=== PATIENT | female | born 1965 | race African-American/Black ===

== ENCOUNTER → 2016-06-29 | Outpatient (CLI) | payer OTHER ==
[~2016-06-29] MED LIST: ALBU18002 INH; ELVI1TAB2 PO; ESCI1TAB10 PO; GABA-113 PO; HYDR-3126 PO; OPTIRAY 320 IV PRN
--- NOTE | 2016-06-29 14:52 | DIAGNOSTIC IMAGING REPORT ---
CT OF THE HEAD WITH AND WITHOUT CONTRAST CT DOSE: 1441.90 mGycm CLINICAL HISTORY: DYSPHAGIA AND APHASIA TECHNIQUE: Axial images of the head were obtained before and after intravenous ministration of 93 cc of Optiray 320 IV. COMPARISON STUDY: None. FINDINGS: No acute intracranial hemorrhage, midline shift or mass effect is present. Ventricular system is normal. The basilar cisterns are patent. There are no extra axial collections. Conner-white differentiation is maintained. There are no findings to suggest acute dural sinus thrombosis or acute territorial infarct. No intracranial mass or pathologic enhancement is identified on the postcontrast images. Visualized portions of the sinuses and mastoid air cells are clear. There are no calvarial abnormalities. IMPRESSION: 1. No acute intracranial findings. 2. No intracranial masses or pathologic enhancement. Electronically signed by: Sahil Lopez M.D. 06/29/2016 2:50 PM Dictated Date/Time: 06/29/2016 2:44 PM
== END | disposition home or self-care (01) ==
LOC: C.CTS 13:59
PROVIDERS: ATTEND Internal Medicine Infectious Disease
DX: R47.01 Aphasia (principal); R47.02 Dysphasia; Z21 Asymptomatic human immunodeficiency virus [HIV] infection status

== ENCOUNTER → 2016-08-11 | Outpatient (CLI) | payer OTHER ==
[~2016-08-11] MED LIST changes: -OPTIRAY 320 IV PRN
--- NOTE | 2016-08-11 10:54 | DIAGNOSTIC IMAGING REPORT ---
RIGHT ANKLE MIN 3 VIEWS ROUTINE CLINICAL HISTORY: Right ankle pain following inversion injury. COMPARISON: None FINDINGS: Alignment of the right ankle is anatomic. There is no acute fracture. Talar dome is intact. There is minimal posterior calcaneal spurring. IMPRESSION: No acute fracture or dislocation of the right ankle. Electronically signed by: Sahil Loepz M.D. 08/11/2016 10:53 AM Dictated Date/Time: 08/11/2016 10:53 AM
--- NOTE | 2016-08-11 10:56 | DIAGNOSTIC IMAGING REPORT ---
L-SPINE MIN 4 VIEWS ROUTINE CLINICAL HISTORY: Lumbar pain. COMPARISON: None FINDINGS: Alignment of the lumbar spine is anatomic. Vertebral body heights are maintained. There is no fracture or suspicious lesion. Disc spaces are preserved. Pelvic calcifications likely reflect phleboliths. There is minimal endplate osteophytosis. IMPRESSION: No significant abnormality of the lumbar spine. Electronically signed by: Sahil Lopez M.D. 08/11/2016 10:55 AM Dictated Date/Time: 08/11/2016 10:54 AM
== END | disposition home or self-care (01) ==
LOC: C.RADBC 10:26
PROVIDERS: ATTEND Family Medicine
DX: M25.571 Pain in right ankle and joints of right foot (principal); M54.5 Low back pain

== ENCOUNTER → 2016-09-15 | Outpatient (CLI) | payer OTHER ==
[2016-09-15 12:05] LABS: BASO % 0.3 %; BASO ABS # 0.02 K/uL (0-0.2); COMPLETE YES; EOS % 1.5 %; HEMATOCRIT 39.3 % (37-47); IG% 0.3 %; LYMPH ABS # 1.84 K/uL (1.2-3.4); MEAN CELL VOLUME 83.3 fL (80-100); MEAN CORPUSCULAR HGB CONC 33.6 g/dl (32-36); MEAN PLATELET VOLUME 9.2 fL (7.4-10.4); MONO % 6.1 %; NEUT % 66.8 %; PLATELET COUNT 418 K/uL (130-400); RED BLOOD COUNT 4.72 M/uL (4.2-5.4); WHITE BLOOD COUNT 7.37 K/uL (4.8-10.8)
[2016-09-15 13:23] LABS: ALT/SGPT 25 U/L (12-78); AST/SGOT 16 U/L (15-37); BLOOD UREA NITROGEN 12 mg/dl (7-18); BUN/CREATININE RATIO 12.6 (10-20); CALCIUM 8.2 mg/dl (8.5-10.1); CARBON DIOXIDE 28 mmol/L (21-32); CHLORIDE 108 mmol/L (98-107); CREATININE 0.95 mg/dl (0.60-1.20); GLUCOSE 104 mg/dl (70-99); POTASSIUM 3.9 mmol/L (3.5-5.1); SODIUM 142 mmol/L (136-145)
[2016-09-15 13:25] LABS: ALB/GLOB RATIO 0.7 (0.9-2); ALKALINE PHOSPHATASE 85 U/L (45-117)
== END | disposition home or self-care (01) ==
LOC: C.LAB1850 11:00
PROVIDERS: ATTEND Internal Medicine Infectious Disease
DX: B20 Human immunodeficiency virus [HIV] disease (principal)

== ENCOUNTER 2016-12-28 18:38 | Emergency (ER) | payer OTHER ==
[~2016-12-28] VITALS: Ht 165.1 cm; Wt 96.6 kg
[2016-12-28 18:47] VITALS: TEMP 37; Ht 165.1 cm; Wt 96.6 kg
[2016-12-28] MEDS ORDERED: SODIUM CHLORIDE 0.9% 1000ML 1,000 ML IV STA (19:28)
[2016-12-28] MEDS ORDERED: ONDANSETRON INJ 2 MG/ML 2 ML VIAL IV STA (19:28)
[2016-12-28] MEDS ORDERED: MoRPHine SULFATE 10 MG/ML CARP/VIAL IV STA (19:28)
--- NOTE | 2016-12-28 19:35 | EMERGENCY ROOM VISIT NOTE ---
History Report prepared by Alicia: Pooja Chang Under the Supervision of: Dr. Roberto Marie M.D. First contact with patient: 19:21 Chief Complaint: OVERDOSE (ACCIDENTAL) Stated Complaint: NICOTINE POISONING - OD Nursing Triage Summary: "I OD'd on Nicotine". Pt reports she quit smoking 3 weeks ago, has been using gum. Pt reports she took 3 yesterday, one today. Today began feeling ill. Heart felt like it was beating fast, nausea, vomiting, abd pain, hot flashes History of Present Illness The patient is a 51 year old female who presents to the Emergency Room with complaints of persistent abdominal pain starting this morning. The pain is in the epigastric region. The patient quit smoking 3 weeks ago and has been using nicotine gum. She took 20 mg yesterday. This morning she started having abdominal pain, nausea, and vomiting. She is concerned for nicotine overdose. She is unable to eat because of her nausea and vomiting. She reports her body feels stiff. She denies any neck stiffness, chest pain, diarrhea, or dysuria. She denies any recent falls or head injury. Her last bowel movement was yesterday. She denies any history of gallbladder problems, pancreatitis, or other abdominal problems. She has not had any abdominal surgeries besides a C section. Source of History: patient Onset: this morning Position: abdomen Quality: other (pain) Timing: other (persistent) Associated Symptoms: + nausea, + vomiting, No chest pain, No diarrhea, No urinary symptoms Note: Pt reports body stiffness. Pt denies neck stiffness. Review of Systems See HPI for pertinent positives & negatives. A total of 10 systems reviewed and were otherwise negative. Past Medical & Surgical Medical Problems: (1) Bipolar 1 disorder (2) HIV positive Family History Diabetes mellitus FHx: cancer Hypertension Social History Smoking Status: Current Every Day Smoker Marital Status: Occupation Status: unemployed Current/Historical Medications Scheduled Uzeaotqrukut-Avwqheisha-Bslufh (Stribild), 1 TAB PO DAILY Escitalopram Oxalate (Lexapro), 20 MG PO DAILY Gabapentin (Neurontin), 300 MG PO TID Hydroxyzine Hcl (Atarax), 50 MG PO BID Scheduled PRN Albuterol Sulfate (Proair Respiclick), 2 PUFFS INH Q4H PRN for SOB/Wheezing Allergies Coded Allergies: Acetaminophen (Verified Adverse Reaction, Unknown, not allowed to have d/ t kidney/liver, 09/20/15) Ibuprofen (Verified Adverse Reaction, Unknown, not allowed to have d/t kidney/liver, 09/20/15) Physical Exam Vital Signs Date Time Temp Pulse Resp B/P (MAP) Pulse Ox O2 Delivery O2 Flow Rate FiO2 12/28/16 21:50 90 110/73 97 Room Air 12/28/16 20:33 95 19 94 12/28/16 20:31 117/83 12/28/16 20:31 117/83 12/28/16 20:28 93 12 96 12/28/16 20:27 95 12/28/16 20:08 126/77 12/28/16 20:08 126/77 12/28/16 18:47 37.0 110 16 116/76 96 Room Air Physical Exam GENERAL: Patient is anxious appearing and in minimal distress. HEENT: No acute trauma, normocephalic atraumatic, mucous membranes moist, no nasal congestion, no scleral icterus. NECK: No stridor, no adenopathy, no meningismus, trachea is midline. LUNGS: No dyspnea. Clear to auscultation and equal bilaterally. No wheeze, no rhonchi. HEART: Regular rate and rhythm. No murmurs, rubs, gallops appreciated. ABDOMEN: Soft, point tenderness over epigastrium, bowel sounds positive, no masses appreciated, no peritonitis. BACK: No midline tenderness, no CVA tenderness EXTREMITIES: Normal motion all extremities, no cyanosis, no edema. NEUROLOGIC: Alert and oriented, no acute motor or sensory deficits, no focal weakness, cranial nerves grossly intact. SKIN: No rash, no jaundice, no diaphoresis. Medical Decision & Procedures ER Provider Diagnostic Interpretation: Radiology results and stated below per my review and radiologist interpretation: CT ABD/PELVIS IV CONTRAST ONLY CLINICAL HISTORY: Epigastric pain and vomiting COMPARISON STUDY: None. TECHNIQUE: Following the IV administration of 116 mL of Optiray-320, CT scan of the abdomen and pelvis was performed from the lung bases to the proximal femurs. Images are reviewed in the axial, sagittal, and coronal planes. IV contrast was administered without complication. CT DOSE: 787.78 mGy.cm FINDINGS: Lower chest: There are mild dependent atelectatic changes. Liver: The contrast-enhanced liver is normal in size, contour, and attenuation. There is no intrahepatic biliary ductal dilatation. The hepatic veins and portal veins are patent. Gallbladder: Unremarkable. Spleen: Normal in size and attenuation. Pancreas: Unremarkable. Adrenal glands: There is a 24 mm right adrenal nodule with a mean Hounsfield attenuation value of 28. This is therefore indeterminate Kidneys: There is symmetric renal cortical enhancement. The kidneys are normal in size without hydronephrosis. Bowel: There are no transition zones indicate bowel obstruction. The appendix appears normal. There is no acute diverticulitis. Peritoneum: There is no intraperitoneal free air or abdominal ascites. Vasculature: The abdominal aorta is normal in course and caliber. Adenopathy: None. Pelvic viscera: The uterus is surgically absent Skeletal structures: No destructive osseous lesions are seen. IMPRESSION: 1. No evidence of bowel obstruction. No evidence of free air 2. Normal appendix. No evidence of acute diverticulitis 3. 24 mm right adrenal nodule Electronically signed by: Segun Knott M.D. 12/28/2016 9:11 PM Dictated Date/Time: 12/28/2016 9:07 PM Laboratory Results 12/28/16 19:57 Red Blood Count 5.26, Mean Corpuscular Volume 82.3, Mean Corpuscular Hemoglobin 27.9, Mean Corpuscular Hemoglobin Concent 33.9, Mean Platelet Volume 9.1, Neutrophils (%) (Auto) 65.8, Lymphocytes (%) (Auto) 22.0, Monocytes (%) (Auto) 8.6, Eosinophils (%) (Auto) 3.2, Basophils (%) (Auto) 0.2, Neutrophils # (Auto) 5.74, Lymphocytes # (Auto) 1.92, Monocytes # (Auto) 0.75, Eosinophils # (Auto) 0.28, Basophils # (Auto) 0.02 12/28/16 19:57 Test 12/28/16 19:50 12/28/16 19:57 Urine Color DK YELLOW Urine Appearance CLEAR (CLEAR) Urine pH 5.0 (4.5-7.5) Urine Specific [place]ro 1.035 (1.000-1.030) Urine Protein NEG (NEG) Urine Glucose (UA) NEG (NEG) Urine Ketones TRACE (NEG) Urine Occult Blood NEG (NEG) Urine Nitrite NEG (NEG) Urine Bilirubin NEG (NEG) Urine Urobilinogen NEG (NEG) Urine Leukocyte Esterase TRACE (NEG) Urine WBC (Auto) 5-10 /hpf (0-5) Urine RBC (Auto) 0-4 /hpf (0-4) Urine Hyaline Casts (Auto) 10-30 /lpf (0-5) Urine Epithelial Cells (Auto) >30 /lpf (0-5) Urine Bacteria (Auto) NEG (NEG) Urine Test NEG (NEG) White Blood Count 8.73 K/uL (4.8-10.8) Red Blood Count 5.26 M/uL (4.2-5.4) Hemoglobin 14.7 g/dL (12.0-16.0) Hematocrit 43.3 % (37-47) Mean Corpuscular Volume 82.3 fL (80-100) Mean Corpuscular Hemoglobin 27.9 pg (25-34) Mean Corpuscular Hemoglobin Concent 33.9 g/dl (32-36) Platelet Count 456 K/uL (130-400) Mean Platelet Volume 9.1 fL (7.4-10.4) Neutrophils (%) (Auto) 65.8 % Lymphocytes (%) (Auto) 22.0 % Monocytes (%) (Auto) 8.6 % Eosinophils (%) (Auto) 3.2 % Basophils (%) (Auto) 0.2 % Neutrophils # (Auto) 5.74 K/uL (1.4-6.5) Lymphocytes # (Auto) 1.92 K/uL (1.2-3.4) Monocytes # (Auto) 0.75 K/uL (0.11-0.59) Eosinophils # (Auto) 0.28 K/uL (0-0.5) Basophils # (Auto) 0.02 K/uL (0-0.2) RDW Standard Deviation 44.0 fL (36.4-46.3) RDW Coefficient of Variation 14.7 % (11.5-14.5) Immature Granulocyte % (Auto) 0.2 % Immature Granulocyte # (Auto) 0.02 K/uL (0.00-0.02) Anion Gap 8.0 mmol/L (3-11) Est Creatinine Clear Calc Drug Dose 78.3 ml/min Estimated GFR () 76.6 Estimated GFR (Non- 66.1 BUN/Creatinine Ratio 15.4 (10-20) Calcium Level 8.9 mg/dl (8.5-10.1) Total Bilirubin 0.3 mg/dl (0.2-1) Direct Bilirubin 0.1 mg/dl (0-0.2) Aspartate Amino Transf (AST/SGOT) 15 U/L (15-37) Alanine Aminotransferase (ALT/SGPT) 23 U/L (12-78) Alkaline Phosphatase 96 U/L (45-117) Troponin I < 0.015 ng/ml (0-0.045) Total Protein 8.8 gm/dl (6.4-8.2) Albumin 3.6 gm/dl (3.4-5.0) Lipase 81 U/L (73-393) Laboratory results as reviewed by me. Medications Administered Medications (Trade) Dose Ordered Sig/Neri Route Start Time Stop Time Status Last Admin Dose Admin Sodium Chloride 1,000 ml @ 999 mls/hr Q1H1M STAT IV 12/28/16 19:28 12/28/16 20:28 DC 12/28/16 20:04 999 MLS/HR Morphine Sulfate (MoRPHine SULFATE INJ) 6 mg NOW STAT IV 12/28/16 19:28 12/28/16 19:29 DC 12/28/16 20:04 6 MG Ondansetron HCl (Zofran Inj) 4 mg NOW STAT IV 12/28/16 19:28 12/28/16 19:29 DC 12/28/16 20:02 4 MG Ondansetron HCl (ZOFRAN ODT 4MG Home Pack) 1 homepack UD ONCE PO 12/28/16 21:30 12/28/16 21:31 DC 12/28/16 22:16 1 HOMEPACK ECG Indication: toxicologic Rate (beats per minute): 94 Rhythm: normal sinus Findings: no acute ischemic change, no ectopy, other (normal QTc) ED Course 1922: The patient was evaluated in room C9. A complete history and physical exam was performed. 1927: Zofran Inj 4 mg IV, Morphine Sulfate 6 mg IV, NSS 1000 ml @ 999 mls/hr IV. 2039: I reevaluated the patient. She is feeling much better. She is pad extraction tender to palpation of the epigastric region. She is agreeable to CT. 2124: I reevaluated the patient. I discussed results and discharge instructions : she verbalized understanding and agreement. The patient is ready for discharge. 2129: Ondansetron HCl 1 homepack PO. Medical Decision Differential: Cholecystitis, Gallbladder disfunction, Hepatic Disfunction, Gastritis/PUD, Pancreatitis, ACS, Aortic Pathology, amongst other pathologies entertained. Medication Reconciliation: I attest that I have personally reviewed the patient 's current medication list. Blood pressure screening: Patient was found to have normal blood pressure on screening and does not require follow-up. 51 yr ol female with epigastric discomfort and nausea with some tachycardia. Ongoing throughout the day and with normal EKG and normal Trop this is not ACS. No respiratory issues. CT unremarkable. Labs look good and she is much better with fluids/pain meds. Stable for quite some time in no distress and wishing to go home. I suspect this is more likely either GI bug vs nicotine withdrawal than actual nicotine poisoning. She does not have peritonitis and is not septic. I feel outpatient monitoring reasonable as does she. Stable and feeling well at discharge. Impression Primary Impression: Epigastric abdominal pain Additional Impression: Nausea & vomiting Scribe Attestation The scribe's documentation has been prepared under my direction and personally reviewed by me in its entirety. I confirm that the note above accurately reflects all work, treatment, procedures, and medical decision making performed by me. Departure Information Dispostion Home / Self-Care Referrals Nury Cartagena MD (PCP) Patient Instructions ED Epigastric Pain O, My [facility] Health Problem Qualifiers
[2016-12-28] MEDS ORDERED: ELVI1TAB2 PO (19:51)
[2016-12-28] MEDS ORDERED: HYDR-3126 PO (19:52)
[2016-12-28] MEDS ORDERED: ESCI1TAB10 PO (19:53)
[2016-12-28] MEDS ORDERED: GABA-113 PO (19:54)
[2016-12-28] MEDS ORDERED: ALBU18002 INH (19:55)
[2016-12-28 20:10] LABS: URINE APPEARANCE CLEAR (CLEAR); URINE COLOR DK YELLOW; URINE EPITHELIAL CELL AUTO >30 /lpf (0-5); URINE NITRITE NEG (NEG); URINE SPECIFIC GRAVITY 1.035 (1.000-1.030); UROBILINOGEN NEG (NEG); ZZUR CULT IF INDIC CLEAN CATCH NO
[2016-12-28 20:11] LABS: BASO % 0.2 %; BASO ABS # 0.02 K/uL (0-0.2); COMPLETE YES; EOS % 3.2 %; HEMATOCRIT 43.3 % (37-47); IG% 0.2 %; LYMPH ABS # 1.92 K/uL (1.2-3.4); MEAN CELL VOLUME 82.3 fL (80-100); MEAN CORPUSCULAR HEMOGLOBIN 27.9 pg (25-34); MEAN CORPUSCULAR HGB CONC 33.9 g/dl (32-36); MEAN PLATELET VOLUME 9.1 fL (7.4-10.4); MONO % 8.6 %; NEUT % 65.8 %; PLATELET COUNT 456 K/uL (130-400); RED BLOOD COUNT 5.26 M/uL (4.2-5.4); WHITE BLOOD COUNT 8.73 K/uL (4.8-10.8)
[2016-12-28 20:27] LABS: MANUAL MICROSCOPIC REQUIRED? NO; REVIEW REQ? NO
[2016-12-28 20:28] LABS: URINE BILIRUBIN NEG (NEG)
[2016-12-28 20:30] LABS: ALT/SGPT 23 U/L (12-78); BLOOD UREA NITROGEN 15 mg/dl (7-18); BUN/CREATININE RATIO 15.4 (10-20); CALCIUM 8.9 mg/dl (8.5-10.1); CARBON DIOXIDE 26 mmol/L (21-32); CHLORIDE 104 mmol/L (98-107); GLUCOSE 96 mg/dl (70-99); POTASSIUM 3.4 mmol/L (3.5-5.1); SODIUM 138 mmol/L (136-145)
[2016-12-28 20:35] LABS: ALKALINE PHOSPHATASE 96 U/L (45-117); AST/SGOT 15 U/L (15-37)
[2016-12-28] MEDS ORDERED: OPTIRAY 320 IV PRN (20:45)
--- NOTE | 2016-12-28 21:12 | DIAGNOSTIC IMAGING REPORT ---
CT ABD/PELVIS IV CONTRAST ONLY CLINICAL HISTORY: Epigastric pain and vomiting COMPARISON STUDY: None. TECHNIQUE: Following the IV administration of 116 mL of Optiray-320, CT scan of the abdomen and pelvis was performed from the lung bases to the proximal femurs. Images are reviewed in the axial, sagittal, and coronal planes. IV contrast was administered without complication. CT DOSE: 787.78 mGy.cm FINDINGS: Lower chest: There are mild dependent atelectatic changes. Liver: The contrast-enhanced liver is normal in size, contour, and attenuation. There is no intrahepatic biliary ductal dilatation. The hepatic veins and portal veins are patent. Gallbladder: Unremarkable. Spleen: Normal in size and attenuation. Pancreas: Unremarkable. Adrenal glands: There is a 24 mm right adrenal nodule with a mean Hounsfield attenuation value of 28. This is therefore indeterminate Kidneys: There is symmetric renal cortical enhancement. The kidneys are normal in size without hydronephrosis. Bowel: There are no transition zones indicate bowel obstruction. The appendix appears normal. There is no acute diverticulitis. Peritoneum: There is no intraperitoneal free air or abdominal ascites. Vasculature: The abdominal aorta is normal in course and caliber. Adenopathy: None. Pelvic viscera: The uterus is surgically absent Skeletal structures: No destructive osseous lesions are seen. IMPRESSION: 1. No evidence of bowel obstruction. No evidence of free air 2. Normal appendix. No evidence of acute diverticulitis 3. 24 mm right adrenal nodule Electronically signed by: Segun Knott M.D. 12/28/2016 9:11 PM Dictated Date/Time: 12/28/2016 9:07 PM
[2016-12-28] MEDS ORDERED: ONDANSETRON HOME PACK 4MG OD TAB PO ONE (21:30)
[2016-12-28 21:50] VITALS: BP 110/73; PULSE 90; O2SAT 97
== END 2016-12-28 22:18 | disposition home or self-care (01) ==
LOC: C.EDB 18:40 → C.EDC 22:18
DX: R10.13 Epigastric pain (principal); R11.2 Nausea with vomiting, unspecified; R00.0 Tachycardia, unspecified; Z87.891 Personal history of nicotine dependence; F31.9 Bipolar disorder, unspecified; Z21 Asymptomatic human immunodeficiency virus [HIV] infection status; Z83.3 Family history of diabetes mellitus; Z82.49 Family history of ischemic heart disease and other diseases of the circulatory system; Z80.9 Family history of malignant neoplasm, unspecified; Z79.899 Other long term (current) drug therapy

== ENCOUNTER → 2017-03-04 | Outpatient (CLI) | payer OTHER ==
[2017-03-04 12:17] LABS: BASO % 0.4 %; BASO ABS # 0.03 K/uL (0-0.2); COMPLETE YES; EOS % 2.3 %; HEMATOCRIT 39.7 % (37-47); IG% 0.6 %; LYMPH % 24.1 %; LYMPH ABS # 2.03 K/uL (1.2-3.4); MEAN CELL VOLUME 82.2 fL (80-100); MEAN CORPUSCULAR HEMOGLOBIN 27.5 pg (25-34); MEAN CORPUSCULAR HGB CONC 33.5 g/dl (32-36); MEAN PLATELET VOLUME 9.8 fL (7.4-10.4); MONO % 5.9 %; NEUT % 66.7 %; PLATELET COUNT 425 K/uL (130-400); RED BLOOD COUNT 4.83 M/uL (4.2-5.4); WHITE BLOOD COUNT 8.41 K/uL (4.8-10.8)
[2017-03-04 12:47] LABS: ALT/SGPT 25 U/L (12-78); BLOOD UREA NITROGEN 13 mg/dl (7-18); CARBON DIOXIDE 25 mmol/L (21-32); CHLORIDE 106 mmol/L (98-107); CREATININE 0.84 mg/dl (0.60-1.20); GLUCOSE 103 mg/dl (70-99); POTASSIUM 3.7 mmol/L (3.5-5.1); SODIUM 137 mmol/L (136-145)
[2017-03-04 12:50] LABS: ALB/GLOB RATIO 0.7 (0.9-2); ALKALINE PHOSPHATASE 106 U/L (45-117); AST/SGOT 17 U/L (15-37)
[2017-03-06 16:34] LABS: LSP % CELLS ANALYZED CD4 41 % (30-61); LSP ABSOLUTE CT CD4 832 cells/uL (490-1740); LSP LYMPHOCYTES ABSOLUTE 2046 cells/uL (850-3900)
== END | disposition home or self-care (01) ==
LOC: C.LAB1850 11:04
PROVIDERS: ATTEND Internal Medicine Infectious Disease
DX: B20 Human immunodeficiency virus [HIV] disease (principal)

== ENCOUNTER → 2017-07-12 | Outpatient (CLI) | payer OTHER ==
--- NOTE | 2017-07-13 14:38 | MAMMOGRAPHY REPORT ---
BILATERAL DIGITAL SCREENING MAMMOGRAM TOMOSYNTHESIS WITH CAD: 07/12/2017 CLINICAL HISTORY: Routine screening. Patient has no complaints. TECHNIQUE: Breast tomosynthesis in addition to standard 2D mammography was performed. Current study was also evaluated with a Computer Aided Detection (CAD) system. COMPARISON: No prior exams were available for comparison. BREAST COMPOSITION: There are scattered areas of fibroglandular density in both breasts. FINDINGS: There is evidence of prior bilateral reduction mammoplasty. There is scattered nodularity and punctate benign-appearing microcalcifications in the breasts. However, there is a dominant, par tially circumscribed, 3.6 cm mass versus masses in the lower outer anterior left breast, which could represent a cyst although definitive characterization with targeted ultrasound and possible additiona l mammographic views is recommended. No other suspicious mass, architectural distortion or cluster of microcalcifications is seen. IMPRESSION: ACR BI-RADS CATEGORY 0: INCOMPLETE EVALUATION: NEED ADDITIONAL IMAGING EVALUATION The dominant, partially circumscribed, 3.6 cm mass versus masses in the lower outer left breast needs additional evaluation. The patient will be called to schedule an appointment. Approximately 10% of breast cancers are not detected with mammography. A negative mammographic report should not delay biopsy if a clinically suggestive mass is present. Corinne Mccloud M.D. ay/:07/12/2017 15:54:36 Automotive Detailer: Anne VASQUEZ)(Nu), [facility] letter sent: Addl Imaging 0 BI-RADS Code: ACR BI-RADS Category 0: Incomplete Evaluation: Need Additional Imaging Evaluation
== END | disposition home or self-care (01) ==
LOC: C.MAMM 13:48
PROVIDERS: ATTEND Plastic Surgery
DX: Z12.31 Encounter for screening mammogram for malignant neoplasm of breast (principal); N63.23 Unspecified lump in the left breast, lower outer quadrant

== ENCOUNTER → 2017-07-26 | Outpatient (CLI) | payer OTHER ==
--- NOTE | 2017-07-26 15:04 | MAMMOGRAPHY REPORT ---
ULTRASOUND OF LEFT BREAST: 07/26/2017 CLINICAL HISTORY: 51-year-old woman with a history of prior reduction mammoplasty recently called gabriel k from screening mammography for a mass versus masses in the lower outer anterior left breast. Famil y history of breast cancer = 2 aunts. COMPARISON: Comparison is made to exam dated: 07/12/2017 mammogram - [facility]. FINDINGS: Targeted ultrasound was performed in the right lateral breast with particular attention to the lower outer quadrant. In the 4:00 axis, 7 cm from the nipple, there are 2 adjacent benign anech oic simple cysts versus a single cyst with thin internal nonvascular septation, measuring 3.6 x 1.1 x 2.8 cm. This correlates with the mammographic finding and is benign. There is no targeted sonograp hic evidence of malignancy in the left breast. IMPRESSION: ACR BI-RADS CATEGORY 2: BENIGN The 3.6 cm lobulated and circumscribed mass in the lower outer anterior left breast correlates with a benign cyst on ultrasound. There is no targeted sonographic evidence of malignancy in the left [address]. Return to annual mammogram screening schedule is recommended. These results and recommendations were discussed with the patient at the time of the exam. Corinne Mccloud M.D. ay/:07/26/2017 10:35:26 Estimator And Drafter: Dr. Corinne Mccloud, [facility] letter sent: Normal 1/2 BI-RADS Code: ACR BI-RADS Category 2: Benign
== END | disposition home or self-care (01) ==
LOC: C.MAMM 10:00
PROVIDERS: ATTEND Plastic Surgery
DX: N63.23 Unspecified lump in the left breast, lower outer quadrant (principal)

== ENCOUNTER → 2017-08-06 | Outpatient (CLI) | payer OTHER | END | disposition home or self-care (01) | LOC: C.LABSPEC 13:48 | PROVIDERS: ATTEND Obstetrics & Gynecology | DX: R30.0 Dysuria (principal) ==

== ENCOUNTER → 2017-08-30 | Outpatient (CLI) | payer OTHER ==
[2017-08-30 12:15] LABS: BASO % 0.6 %; BASO ABS # 0.05 K/uL (0-0.2); EOS % 6.1 %; EOS ABS # 0.49 K/uL (0-0.5); HEMOGLOBIN 12.7 g/dL (12.0-16.0); IG# 0.02 K/uL (0.00-0.02); LYMPH % 34.2 %; LYMPH ABS # 2.74 K/uL (1.2-3.4); MEAN CELL VOLUME 82.8 fL (80-100); MEAN CORPUSCULAR HEMOGLOBIN 27.7 pg (25-34); MEAN CORPUSCULAR HGB CONC 33.4 g/dl (32-36); MEAN PLATELET VOLUME 9.5 fL (7.4-10.4); MONO % 7.1 %; MONO ABS # 0.57 K/uL (0.11-0.59); NEUT % 51.8 %; NEUT ABS # 4.15 K/uL (1.4-6.5); PLATELET COUNT 408 K/uL (130-400); RED CELL DISTRIBUTION WIDTH CV 15.7 % (11.5-14.5); RED CELL DISTRIBUTION WIDTH SD 47.1 fL (36.4-46.3); WHITE BLOOD COUNT 8.02 K/uL (4.8-10.8)
[2017-08-30 12:45] LABS: BLOOD UREA NITROGEN 20 mg/dl (7-18); CREATININE 1.05 mg/dl (0.60-1.20); GLUCOSE 128 mg/dl (70-99)
[2017-08-30 12:46] LABS: ALBUMIN 3.4 gm/dl (3.4-5.0); ALT/SGPT 19 U/L (12-78); CALCIUM 8.6 mg/dl (8.5-10.1); CARBON DIOXIDE 23 mmol/L (21-32); POTASSIUM 3.7 mmol/L (3.5-5.1); SODIUM 137 mmol/L (136-145)
[2017-08-30 12:48] LABS: ALKALINE PHOSPHATASE 91 U/L (45-117); AST/SGOT 9 U/L (15-37); TOTAL PROTEIN 7.4 gm/dl (6.4-8.2)
[2017-09-01 17:30] LABS: LSP % CELLS ANALYZED CD4 48 % (30-61); LSP ABSOLUTE CT CD4 1304 cells/uL (490-1740)
== END | disposition home or self-care (01) ==
LOC: C.LAB1850 09:51
PROVIDERS: ATTEND Internal Medicine Infectious Disease
DX: B20 Human immunodeficiency virus [HIV] disease (principal)

== ENCOUNTER → 2018-02-03 | Outpatient (CLI) | payer OTHER ==
[~2018-02-03] MED LIST changes: -ESCI1TAB10 PO; -GABA-113 PO; -HYDR-3126 PO; +LMC/150 PO; +SYMIN160 INH
[2018-02-03 12:15] LABS: BASO % 0.5 %; BASO ABS # 0.04 K/uL (0-0.2); EOS % 5.7 %; EOS ABS # 0.42 K/uL (0-0.5); HEMATOCRIT 39.9 % (37-47); HEMOGLOBIN 12.7 g/dL (12.0-16.0); IG# 0.02 K/uL (0.00-0.02); LYMPH % 37.8 %; LYMPH ABS # 2.78 K/uL (1.2-3.4); MEAN CELL VOLUME 82.6 fL (80-100); MEAN CORPUSCULAR HEMOGLOBIN 26.3 pg (25-34); MEAN CORPUSCULAR HGB CONC 31.8 g/dl (32-36); MEAN PLATELET VOLUME 10.1 fL (7.4-10.4); MONO % 7.3 %; MONO ABS # 0.54 K/uL (0.11-0.59); NEUT % 48.4 %; NEUT ABS # 3.56 K/uL (1.4-6.5); PLATELET COUNT 452 K/uL (130-400); RED CELL DISTRIBUTION WIDTH CV 15.3 % (11.5-14.5); RED CELL DISTRIBUTION WIDTH SD 46.3 fL (36.4-46.3); WHITE BLOOD COUNT 7.36 K/uL (4.8-10.8)
[2018-02-03 12:41] LABS: ALBUMIN 3.4 gm/dl (3.4-5.0); ALKALINE PHOSPHATASE 91 U/L (45-117); ALT/SGPT 16 U/L (12-78); AST/SGOT 8 U/L (15-37); BLOOD UREA NITROGEN 14 mg/dl (7-18); CALCIUM 8.7 mg/dl (8.5-10.1); CARBON DIOXIDE 25 mmol/L (21-32); CHOLESTEROL 177 mg/dl (0-200); CREATININE 0.87 mg/dl (0.60-1.20); GLUCOSE 106 mg/dl (70-99); LDL CHOLESTEROL CALCULATED 111 mg/dl; POTASSIUM 4.1 mmol/L (3.5-5.1); SODIUM 138 mmol/L (136-145); TOTAL PROTEIN 7.6 gm/dl (6.4-8.2)
[2018-02-08 13:33] LABS: LSP % CELLS ANALYZED CD4 45 % (30-61); LSP ABSOLUTE CT CD4 1240 cells/uL (490-1740)
== END | disposition home or self-care (01) ==
LOC: C.LAB1850 09:51
PROVIDERS: ATTEND Internal Medicine
DX: B20 Human immunodeficiency virus [HIV] disease (principal); F31.9 Bipolar disorder, unspecified

== ENCOUNTER → 2018-02-09 | Outpatient (CLI) | payer OTHER ==
[2018-02-09 12:53] LABS: ALBUMIN 3.3 gm/dl (3.4-5.0); ALKALINE PHOSPHATASE 100 U/L (45-117); ALT/SGPT 17 U/L (12-78); AST/SGOT 12 U/L (15-37); BLOOD UREA NITROGEN 12 mg/dl (7-18); CALCIUM 8.6 mg/dl (8.5-10.1); CARBON DIOXIDE 25 mmol/L (21-32); CHOLESTEROL 181 mg/dl (0-200); CREATININE 0.95 mg/dl (0.60-1.20); GLUCOSE 102 mg/dl (70-99); LDL CHOLESTEROL CALCULATED 109 mg/dl; POTASSIUM 3.8 mmol/L (3.5-5.1); SODIUM 138 mmol/L (136-145); TOTAL PROTEIN 7.3 gm/dl (6.4-8.2)
== END | disposition home or self-care (01) ==
LOC: C.LAB1850 09:49
PROVIDERS: ATTEND Psychiatry & Neurology Psychiatry
DX: F31.9 Bipolar disorder, unspecified (principal); Z79.899 Other long term (current) drug therapy

== ENCOUNTER 2020-09-16 05:57 | Observation (INO) ==
--- NOTE | 2020-09-13 09:20 | Anesthesiology Consultation ---
Date of Service September 13, 2020 Assessment & Plan (1) Encounter for pre-operative examination: Chart Review Chart Review: Acceptable Risk for Surgery and Patient NOT seen in Pre Admission Testing Per nursing assessment 09/13/2020, patient denies any recent travel. No known Covid infection in the past 90 days. No known Covid positive contacts or Covid related symptoms. Covid test 09/10/20= results negative History Surgery Operation Date: 09/16/20 07:30 Proposed Procedures p Bilateral Mammoplasty Reduction - Sandhya Choi MD Height/Weight Height: 5 ft 5 in Weight: 62.142 kg Allergies Allergy/AdvReac Type Severity Reaction Status Date / Time acetaminophen AdvReac Unknown not Verified 09/13/20 09:06 allowed to have d/t kidney/liver ibuprofen AdvReac Unknown not Verified 09/13/20 09:06 allowed to have d/t kidney/liver Medications Home Medications Medication Instructions Recorded Confirmed Last Taken cehvpydfc-halplhyf-sxetmqq ala 1 tab PO QAM 08/13/18 09/13/20 08/12/18 [Biktarvy] Ventolin HFA 90 mcg/actuation 2 puff INHALATION Q4 PRN #18 gm NS 06/13/19 09/13/20 Unknown aerosol inhaler Medical Marijauna 1 tab PO UD PRN 08/29/19 09/13/20 Unknown budesonide-formoterol [Symbicort] 2 puffs INH BID PRN 08/29/19 09/13/20 Unknown lurasidone [Latuda] 20 mg PO QAM 09/13/20 09/13/20 Unknown Past Medical History Medical History ADHD Anxiety and depression Asthma LAST USED RESCUE INHALER>A COUPLE WEEKS AGO Bipolar 1 disorder HIV positive Migraines Osteoarthritis Post traumatic stress disorder Temporomandibular joint disorder Past Family History Family History Sister Family history of diabetes mellitus Father Family history of diabetes mellitus Mother Family history of diabetes mellitus Other Cancer Gallbladder disease Heart disease Hypertension No family history of adverse response to anesthesia Seizure Denies family history of Ovarian cancer Prostate cancer Myocardial infarction Breast cancer Colorectal cancer Past Surgical History Surgical History H/O bilateral breast reduction surgery History of bladder surgery Bladder slings x2 History of colonoscopy History of esophagogastroduodenoscopy (EGD) History of hysterectomy History of tooth extraction Social History Smoking Status: Former smoker tobacco type: cigarettes Smoking End Date: "A COUPLE WEEKS AGO" Hx Alcohol Use: Yes Alcohol type: beer, wine and hard liquor alcohol intake frequency: a few times a month Hx Substance Use: No (HAS MEDICAL MARIJUANA USED FOR NAUSEA) Testing Laboratory Results Laboratory Tests 09/10/20 09/10/20 09/10/20 10:49 10:49 10:49 WBC 6.65 Hgb 14.6 Hct 43.7 Plt Count 360 PT 10.1 INR 1.0 APTT 26.3 Sodium 140 Potassium 3.7 Chloride 108 H Carbon Dioxide 30 BUN 18 Creatinine 1.00 Glucose 89 Electrocardiogram Date: 09/11/19 Findings: + NSR @ (68 bpm) Normal EKG. Chest X-Ray Date: 04/12/20 Findings: + NAD
[2020-09-16] MEDS ORDERED: ceFAZolin 2000MG 2,000 MG/15 ML SYR IV SCH (06:00)
[2020-09-16] MEDS ORDERED: LR 15ML/HR IV SCH (06:00)
[2020-09-16] MEDS ORDERED: BUPIVACAINE 0.5 % 5 MG/1 ML PF 10ML VIAL ONE ×2 (06:42→07:03)
[2020-09-16] MEDS ORDERED: ePHEDrine sulfate 50 MG/ML AMP IV PRN (06:45)
[2020-09-16] MEDS ORDERED: ATROPINE SULFATE 0.1 MG/ML 10ML SYR IV PRN (06:45)
[2020-09-16] MEDS ORDERED: ONDANSETRON INJ 2 MG/ML 2 ML VIAL IV PRN ×2 (06:45→12:49)
[2020-09-16] MEDS ORDERED: PROPOFOL IV EMULSION 10 MG/ML 20 ML VIAL IV ONE (06:50)
[2020-09-16] MEDS ORDERED: MIDAZOLAM HCL 1 MG/ML 2ML VIAL ONE (06:50)
[2020-09-16] MEDS ORDERED: NEOSTIGMINE METHYLSULFATE 5 MG/5 ML SYR ONE (06:50)
[2020-09-16] MEDS ORDERED: ROCURONIUM BROMIDE 10 MG/ML 5 ML VIAL IV ONE (06:50)
[2020-09-16] MEDS ORDERED: DEXAMETHASONE SOD INJ 4 MG/ML VIAL ONE (06:50)
[2020-09-16] MEDS ORDERED: ONDANSETRON INJ 2 MG/ML 2 ML VIAL ONE (06:50)
[2020-09-16] MEDS ORDERED: LIDOCAINE HCL 2% 2 ML VIAL/AMP(20MG/ML) INFIL ONE (06:50)
[2020-09-16] MEDS ORDERED: GLYCOPYRROLATE 0.2 MG/ML VIAL ONE (06:50)
[2020-09-16] MEDS ORDERED: HYDROmorphone INJ 2 MG/ML SYR/VIAL ONE (06:51)
[2020-09-16] MEDS ORDERED: BUPIVACAINE LIPOSOME 1.3% 266 MG/20 ML VIAL ONE (07:05)
[2020-09-16] MEDS ORDERED: fentaNYL citrate 100 MCG/2 ML VIAL ONE ×3 (07:07→11:55)
[2020-09-16] MEDS ORDERED: BUPIVACAINE 0.25% 30 ML VIAL ONE (07:16)
[2020-09-16] MEDS ORDERED: LIDOCAINE/EPINEPHRINE 1% 20 ML VIAL ONE (07:16)
--- NOTE | 2020-09-16 07:16 | History & Physical Bridge Note ---
Date of Service September 16, 2020 History & Physical Bridge Note I have examined the patient, reviewed the History & Physical and in the interval since the performance of the History & Physical I have noted the following changes of clinical significance: further weight loss, persistent symptoms-137 lbs, BSA 1.69.
[2020-09-16] MEDS ORDERED: KETAMINE 50 MG/5 ML SYRINGE ONE (08:03)
[2020-09-16] MEDS ORDERED: THROMBIN FOR SOLN 20000 UNIT KIT ONE (08:49)
--- NOTE | 2020-09-16 12:36 | Post Operative Brief Note ---
PG Immediate Post Op with CF Date of Surgery September 16, 2020 Pre & Post Diagnosis Operation Date: 09/16/20 07:30 Pre-Op Diagnosis: Bilateral Breast Hypertrophy Post-Op Diagnosis: Bilateral Breast Hypertrophy I identified the patient and participated in the time-out.: Yes Procedure Operation Date: 09/16/20 07:30 Actual Procedures p Bilateral Breast Reduction(Bilateral) - Sandhya Choi MD Surgeon Sandhya Choi MD Cad Developer Reba Encarnacion PAKeshawn Estimated Blood Loss 50 Findings Consistent with Post-Op Diagnosis Specimens Specimen Description: Fresh Specimen: A.) Left Breast Tissue out of body at : 0858 weight : 318 grams sent out of OR 6 to lab at 0920 Fresh Specimen: B.) Right Breast Tissue out of body at :1056 weight : 316 grams sent out of OR6 to lab at 1114 Drains Abimael-Monterroso Drain (x2)
[2020-09-16] MEDS ORDERED: diphenhydrAMINE 50 MG/ML VIAL IV PRN (12:49)
[2020-09-16] MEDS ORDERED: MoRPHine SULFATE 4 MG/ML 1 ML CARP\\VIAL IV PRN (12:49)
[2020-09-16] MEDS ORDERED: LORazepam 0.5 MG TAB PO PRN (12:49)
[2020-09-16] MEDS ORDERED: PROMETHAZINE HCL 6.25 MG in SODIUM CHLORIDE 0.9% 50 ML IV PRN (12:49)
[2020-09-16] MEDS ORDERED: diphenhydrAMINE Capsule 25 MG CAP PO PRN (12:49)
[2020-09-16] MEDS ORDERED: oxyCODONE HCL IR 5 MG TAB (IMMEDIATE RELEASE) PO PRN (12:49)
[2020-09-16] MEDS: fentaNYL citrate 100 MCG/2 ML VIAL IV PRN ×4 (13:00→13:15)
--- NOTE | 2020-09-16 13:00 | Operative Report ---
PG Post Operative Report Pre & Post Diagnosis Operation Date: 09/16/20 07:30 Pre-Op Diagnosis: Bilateral Breast Hypertrophy, back and neck pain Post-Op Diagnosis: Bilateral Breast Hypertrophy I identified the patient and participated in the time-out.: Yes Procedure Operation Date: 09/16/20 07:30 Actual Procedures p Bilateral Breast Reduction with free nipple grafting (Bilateral) - Sandhya Choi MD Surgeon Sandhya Choi MD Manager [employer] Reba Encarnacion PA-C Estimated Blood Loss 50 Findings Consistent with Post-Op Diagnosis Specimens left breast tissue 318 grams to pathology, right breast 316 grams to pathology Drains JPx2 Anesthesia Type General Complications none Disposition Disposition: Recovery Room Indications Patient is a 54-year-old female presenting today for bilateral reduction mammoplasty with free nipple grafting. There is history of prior breast reduction performed in 2007. She did have initial relief, unfortunately, she had recurrence of breast tissue, has been intermittently coming to see me since 2017 regarding her macromastia. Initially I recommended weight loss, despite weight loss; she still wore a 40 triple D bra, suffered from neck pain, headache, shoulder pain upper back pain, shoulder grooving, rashes and skin irritation which have been refractory to physical therapy, pain medication, weight loss, cardiac care unit nurse, pain management evaluation. Weight today is 137 pounds, body surface area 1.69 pounds. Recent mammogram showed a cyst in the left breast, which was aspirated and felt to be benign. Description of Procedure The risks, benefits and alternatives of the procedure were explained to the patient who agreed and signed consent. She was identified and marked in the preoperative holding area. She was brought to the operating room where she was positioned supine and placed under general anesthesia without incident. Surgical site markings were again reassessed. The patient's prior scar had migrated above the inframammary fold, and therefore a new incision was made within the inframammary fold. I began with the left breast. 1% lidocaine with epinephrine was used to anesthetize the planned incisions as well as the nipple areolar complex. A breast tourniquet was applied using the Jen clamp and lap sponge. A 38 mm cookie cutter was used to circumscribe the nipple-areolar complex. The nipple-areolar complex was then removed as a full thickness graft and placed on the back table in saline soaked sponge. At this point, tourniquet was released and the inframammary fold incision was made using 15 blade scalpel. Electrocautery was used to deepen the incision through subcutaneous fat and breast parenchyma down to chest wall. Care was taken to perform this in a bevelled direction ligating vessels as needed and achieving hemostasis with electrocautery. Once the breast was mostly undermined, the superior incision was then made to the inferior aspect of the keyhole incision. This was performed using a 15 blade scalpel. Incision was then deepened using electrocautery again full thickness through the breast. A similar incision was made laterally. Centrally, the skin was incised using electrocautery and additional breast parenchyma was resected again in a beveled fashion in order to retain some projection of the breast. Tissue was passed off for weighing. Additional resection was performed until we achieved the desired size and the wound was able to be closed with minimal tension. It should be noted my initial estimate was 370 g, based on BSA. Patient has lost further weight since her last office visit, and Medicare guidelines for tissue resection were reviewed. With a BSA of 1.69, minimum tissue resection should be in the range of 285 to 349 g in order to support medical necessity. Total resection weight on the left was 318 grams, which left the breast quite small. Hemostasis was achieved with electrocautery 0.25% Marcaine plain was used to anesthetize the incisions as well as pectoralis fascia. A 15 Polish Matheus drain was brought out through a separate stab incision laterally toward the axilla. The keyhole was then incised using 15 blade scalpel and deepithelialized. T-junction was brought together using 2-0 Vicryl suture. Closure was begun first lateral to medial using 2-0 Vicryl deep dermal sutures and then medial to lateral using 2-0 Vicryl deep dermal sutures. Vertical limb was closed using a combination of 2-0 Vicryl deep dermal sutures and a 3-0 PDS interrupted dermal sutures. The inframammary fold incision was closed using 2-0 PDO deep dermal running Quill suture. The vertical limb was then closed using 3-0 Monocryl running subcuticular suture. Nipple areolar complex was inspected and thinned using a curved iris scissor. It was placed in the recipient bed and sutured into place using 4-0 silk tie over bolster sutures and 4-0 chromic interrupted sutures. A similar procedure was undertaken on the right side. Total resection weight was 316 grams on the right. There was reasonable symmetry at the close of the case. No complications. Dermabond Prineo was applied to the incisions. Dry dressing followed by a surgical bra were placed. The patient was awakened and transferred to the recovery room in satisfactory condition. Reba Encarnacion PA-C was present and scrubbed throughout the entire procedure and was instrumental in providing retraction, preparing the nipple graft and assisting in simultaneous wound closure. I attest to the content of the Intraoperative Record and any orders documented therein. Any exceptions are noted below.
[2020-09-16] MEDS: HYDROmorphone INJ 1 MG/ML SYRINGE IV PRN ×4 (13:20→14:02)
--- NOTE | 2020-09-16 14:26 | Anesthesiology Progress Note ---
Date of Service September 16, 2020 Anesthesia Post Procedure Vital Signs Vital Signs: Temp Pulse Pulse Resp BP BP Pulse Ox 09/16/20 14:25 80 16 117/77 93 09/16/20 14:15 80 16 128/76 94 09/16/20 14:05 87 18 127/85 96 09/16/20 13:55 76 12 144/88 H 98 09/16/20 13:45 36.6 C 68 14 139/86 100 09/16/20 13:35 70 14 133/84 100 09/16/20 13:25 76 14 133/87 100 09/16/20 13:15 82 16 127/82 100 09/16/20 13:05 88 18 131/88 100 09/16/20 12:56 36 C L 94 H 20 127/100 100 09/16/20 06:35 36.9 C 82 18 138/96 99 Pain Intensity Right Breast: Pain Intensity: 2 Transfer of Care Handoff Completed per policy Notes Mental Status: alert / awake / arousable and participated in evaluation Patient Amnestic to Procedure: Yes Nausea / Vomiting: adequately controlled Pain: adequately controlled Airway Patency, RR, SpO2: stable & adequate BP & HR: stable & adequate Hydration State: stable & adequate Anesthetic Complications: no major complications apparent and Pt Satisfied with anesthetic care
--- NOTE | 2020-09-16 14:58 | Surgery Progress Note ---
Date of Service September 16, 2020 Assessment & Plan (1) Back pain: (2) Breast hypertrophy in female: Debi is s/p Bilateral Breast Reduction with Free Nipple Grafting. Her pain is controlled with as needed pain medication. She denies nausea. No signs of active bleeding on physical exam. Bilateral EFRAIN drains in place with approximately 20cc in output/drain since surgery. Plan is to discharge patient to home tomorrow morning. Script for both post-op pain medication and post-op antibiotic sent to patient's pharmacy. Subjective Debi is resting comfortably in bed. She notes that she does have some post-op discomfort. She denies nausea. Physical Exam Physical Exam: Surgical bra in place- surgical dressings are clean and dry. Nipples bolsters are in place bilaterally. EFRAIN drains x [address] with bloody drainage. Drains were both emptied at bedside by nurse with 10 cc/drain. No evidence of active bleeding. Results & Data ([facility]) Vital Signs (Past 12 Hours) Vital Signs Temp Pulse Pulse Resp BP BP Pulse Ox 09/16/20 14:45 88 18 109/70 94 09/16/20 14:35 83 20 123/74 93 09/16/20 14:25 80 16 117/77 93 09/16/20 14:15 80 16 128/76 94 09/16/20 14:05 87 18 127/85 96 09/16/20 13:55 76 12 144/88 H 98 09/16/20 13:45 36.6 C 68 14 139/86 100 09/16/20 13:35 70 14 133/84 100 09/16/20 13:25 76 14 133/87 100 09/16/20 13:15 82 16 127/82 100 09/16/20 13:05 88 18 131/88 100 09/16/20 12:56 36 C L 94 H 20 127/100 100 09/16/20 06:35 36.9 C 82 18 138/96 99 PG Care Time/CCT Total # of Minutes Spent Total Time Spent with Patient: Total time spent is greater than 50% in coordination of care (as documented) at patient's floor/unit and/or counseling patient: Coding Level of Care Code None Diagnoses Back pain M54.9 Back pain location: thoracic back pain Chronicity: chronic Breast hypertrophy in female N62 (1) Back pain Back pain location: thoracic back pain Chronicity: chronic
[2020-09-16] MEDS ORDERED: ALBUTEROL HFA 8 GM INHALER INH PRN (15:04)
[2020-09-16] MEDS ORDERED: FLUTICASONE/VILANTEROL 100/25MCG 14 PUFFS/INHALER INH PRN (15:08)
[2020-09-16] MEDS: D5W AND 1/2NSS + 20MEQ KCL 20 MEQ/1,000 ML BAG IV SCH (16:38)
[2020-09-16] MEDS: MoRPHine SULFATE 2 MG/ML CARP IV PRN ×2 (16:38→20:16)
[2020-09-16] MEDS: ceFAZolin 2000MG 2,000 MG/15 ML SYR IV SCH ×2 (16:38→23:27)
[2020-09-16] MEDS ORDERED: COUGH DROP (SUGAR FREE) LOZ 24 LOZ/1 BOX BUCCAL ONE (20:12)
[2020-09-17] MEDS: MoRPHine SULFATE 2 MG/ML CARP IV PRN ×2 (02:04→05:45)
[2020-09-17] MEDS: D5W AND 1/2NSS + 20MEQ KCL 20 MEQ/1,000 ML BAG IV SCH (05:42)
[2020-09-17] MEDS: oxyCODONE HCL IR 5 MG TAB (IMMEDIATE RELEASE) PO PRN ×2 (07:51→11:59)
--- NOTE | 2020-09-17 08:14 | Anesthesiology Progress Note ---
Date of Service September 17, 2020 Anesthesia Post Procedure Vital Signs Vital Signs: Temp Pulse Pulse Resp BP BP Pulse Ox 09/17/20 08:06 36.8 C 69 16 123/80 97 09/17/20 03:32 36.8 C 62 16 127/75 97 09/17/20 00:30 36.7 C 77 18 123/75 96 09/16/20 20:10 36.8 C 79 16 122/79 99 09/16/20 19:10 36.7 C 76 18 118/77 98 09/16/20 18:00 36.7 C 75 18 145/79 H 98 09/16/20 17:03 36.8 C 78 18 128/79 98 09/16/20 16:04 36.6 C 70 18 115/75 98 09/16/20 16:03 36.6 C 78 18 127/85 97 09/16/20 15:30 36.8 C 85 18 111/67 95 09/16/20 15:00 36.8 C 100 H 16 111/65 95 09/16/20 14:45 88 18 109/70 94 09/16/20 14:35 83 20 123/74 93 09/16/20 14:25 80 16 117/77 93 09/16/20 14:15 80 16 128/76 94 09/16/20 14:05 87 18 127/85 96 09/16/20 13:55 76 12 144/88 H 98 09/16/20 13:45 36.6 C 68 14 139/86 100 09/16/20 13:35 70 14 133/84 100 09/16/20 13:25 76 14 133/87 100 09/16/20 13:15 82 16 127/82 100 09/16/20 13:05 88 18 131/88 100 09/16/20 12:56 36 C L 94 H 20 127/100 100 Notes Mental Status: alert / awake / arousable Patient Amnestic to Procedure: Yes Nausea / Vomiting: adequately controlled Pain: adequately controlled Airway Patency, RR, SpO2: stable & adequate BP & HR: stable & adequate Hydration State: stable & adequate Anesthetic Complications: no major complications apparent and Pt Satisfied with anesthetic care
[2020-09-17] MEDS ORDERED: BIKTARVY PO SCH (09:00)
[2020-09-17] MEDS ORDERED: MULTIVITAMIN TAB PO SCH (09:00)
--- NOTE | 2020-09-17 10:13 | Surgery Progress Note ---
Date of Service September 17, 2020 Assessment & Plan (1) Status post breast reduction: Admission and Anticipated Discharge Date Admission Date: September 16, 2020 POD#1 s/p bilateral breast reduction with free nipple graft 1. bilateral EFRAIN drains removed 2. NAC bolster dressings sewn in place 3. anticipate d/c today. patient has an office follow-up scheduled tomorrow. She was given the option to delay this appointment until her 5-7 bolster removal but she would like to come to the office. She is concerned that 18 oxycodones will not be sufficient to cover her post-op pain. She was reassured we will address this at her visit tomorrow and she will be provided with additional medication if needed. Galilea Carrera is resting in bed. Pain is well controlled after taking two oxycodone. She is tolerated regular diet. Vitals stable. Physical Exam Physical Exam: drains with scant seroang output- removed. NAC bolster dressings in place. no concern for hematoma. incisions CDI. Results & Data ([facility]) Vital Signs (Past 12 Hours) Vital Signs Temp Pulse Resp BP Pulse Ox 09/17/20 08:06 36.8 C 69 16 123/80 97 09/17/20 03:32 36.8 C 62 16 127/75 97 09/17/20 00:30 36.7 C 77 18 123/75 96 PG Care Time/CCT Total # of Minutes Spent Total Time Spent with Patient: Total time spent is greater than 50% in coordination of care (as documented) at patient's floor/unit and/or counseling patient: Coding Level of Care Code None Diagnoses Status post breast reduction Z98.890
--- NOTE | 2020-09-17 16:23 | Discharge Summary ---
Date of Service September 17, 2020 Admission HPI Per Admitting Provider see admission H&P Admission Exam Per Admitting Provider see admission H&P Principal Diagnosis breast hypertrophy Discharge Exam Constitutional WD/WN, vitals as above no acute distress Skin + incision (CDI, NAC bolsters in place) drains with scant output- removed Discharge Data Allergies Allergy/AdvReac Type Severity Reaction Status Date / Time acetaminophen AdvReac Unknown not Verified 09/16/20 06:15 allowed to have d/t kidney/liver ibuprofen AdvReac Unknown not Verified 09/16/20 06:15 allowed to have d/t kidney/liver Procedures Performed Operation Date: 09/16/20 07:30 Actual Procedures p Bilateral Breast Reduction(Bilateral) - Sandhya Choi MD Ordered Studies 09/16/20 05:00 US - OR guided needle placemen Routine Hospital Course (1) Status post breast reduction: Patient presented to [facility] with history of symptomatic macromastia. She was taken to the OR and underwent bilateral breast reduction with free nipple graft. There were no intraoperative complications. She was taken to recovery and transferred to med/surg for observation. On POD#1, she was feeling well. She was tolerating a regular diet and ambulating. On exam, her vitals were stable. Her incisions were CDI and NAC bolsters intact. Her drains were removed. She was discharged home with instructions to follow-up in the office in one day. Total Time Total Time Spent Total Time Spent (In Minutes): 15 Total Time Includes: Examination of the Patient, Discharge Planning, Medication Reconciliation and Communication With Other Providers Discharge Plan Discharge Items Patient Disposition: Home - Home Health Services Reason For Visit: Breast Hypertrophy Discharge Diagnosis: Breast Hypertrophy Activity: As commented below Non-emergency contact: Surgeon Call non-emergency contact if: you have any medication questions, your pain is not controlled, your temperature is above 101.5, your wound has increased redness and your wound has increased drainage Follow-up/Referrals: Sandhya Choi MD [Physician] - 09/18/20 1:00 pm Edgardo Miles MD [Primary Care Provider] - Diet: Regular Addtl Attending Provider Instructions: ACTIVITY RECOMMENDATIONS: __Normal activities _X_No bending, lifting or straining __No driving _X_Driving allowed when you are off pain medications _X_Walking permitted __You should have help at home for ___ days DRESSINGS: __No dressings required _X_Keep surgical bra and surgical dressings dry/in place until first office visit __Remove dressings ___ and leave dressings off __Apply ice ___ days __Remove dressings and reapply garment __Apply antibiotic ointment (Bacitracin, Neosporin, etc) to wounds 3-4 times/day for 10 days BATHING: _X_Keep dressings dry _X_Sponge bathing permitted, but please keep surgical bra and surgical dressings dry. __Showering permitted _X_No swimming, hot tubs or soaking in a tub MEDICATIONS: Resume previous medications unless instructed otherwise by your surgeon. Continue to hold medical marijuana. X__Do not use aspirin, Motrin, Advil or Ibuprofen as these may promote bleeding. Please use Tylenol. _X_Prescription(s) provided: Prescription for post-op antibiotic and post-op pain medication was sent to your pharmacy. Please begin antibiotic once you are discharged home. SPECIAL CARE INSTRUCTIONS: * It is normal to have a mild fever after surgery. If your temperature is higher than 101.5 degrees F, please call the office at [phone]. * Constipation is a typical side effect of pain medication. An ewde-jgb-tgwztku stool softener will help relieve this. * Leaking around surgical drains may occur and should not cause concern. Sometimes these drains become clogged. If this happens, remove the bulb and milk the clot out of the tube, then replace the bulb. * Drainage from wounds after liposuction is normal and should be expected. Garments will become soiled. You should protect furniture and bedding. This drainage should mostly subside within 2-3 days. Leave garments in place unless instructed to remove them. * If you have unusual drainage from a wound or are concerned you have an infection or have any questions or concerns, please call the office at [phone]. FOLLOW UP VISIT: If not already scheduled, please call the office, , when you return home after surgery to schedule an appointment to be seen in _2__ days. Discharge Instructions after your anesthesia with a nerve block: During your procedure you were given medicine for anesthesia to keep you relaxed or sleeping and free of pain. After your procedure you may have some sleepiness, dizziness, or nausea. This is common. Here are some tips for feeling better and getting well after your anesthesia: Anesthesia and safety for 24 hours after anesthesia: Have an adult drive you home. Have someone stay with you for at least 24 hrs. They can watch for problems and help keep you safe. You may experience some dizziness or sleepiness for 24 hrs. Move slowly when changing positions or climbing stairs. Have someone help you when getting up or climbing stairs. For the first 24 hours after your anesthesia: Do not drive or use heavy equipment. Do not use household or hazardous devices that may cause injury. Do not make important decisions, sign legal papers or work on any business matters. Do not drink alcohol. Instructions for nerve block of surgical area This anesthesia can last for 36-72 hours or longer depending on the medicine used. This is only an estimate of how long your block can last. Your block may wear off earlier or last longer. What to expect AFTER a nerve block Nerve blocks affect many types of nerves, including nerves that control movement, pain, and normal sensation. These blocks can cause feelings such as: * Numbness * Tingling * Heaviness * Weakness or inability to move your arm or leg * A feeling that your arm or leg has fallen asleep Weakness usually wears off first. The tingling and heaviness usually wear off next. Finally, you may start to notice pain. These may happen in any order. Once a block starts to wear off, its effects are usually completely gone within 60 minutes. Diet and managing nausea for 24 hours after anesthesia: Some people have an upset stomach after anesthesia for 24 hours. If an upset stomach lasts more than 24 hours, please call your surgeon at [phone]. These tips may help with upset stomach after anesthesia: Do not push yourself to eat or drink for 2 4 hours after discharge. If you vomit, do not eat or drink for 2 hours, then start with clear liquids again. * Start with clear liquids and soup. These foods are easier to digest. * Next, try semi-solid foods such as mashed potatoes, applesauce. * Slowly move to solid foods. Do not eat fatty, rich or spicy foods at first. * Do not force yourself to have 3 large meals a day. Instead eat smaller amounts more often. * If you have been prescribed pain medication or if you are going to take vzfv-kow-palxmjf pain medication (i.e. Tylenol), please take with a small amount of solid food, such as crackers or toast, to avoid an upset stomach. Pain medication after an anesthesia nerve block: If needed, your surgeon will give you a prescription for pain medication or you will be instructed to take gykw-anq-uruaeel pain medication (i.e. Tylenol). Start taking this medicine before the block first begins to wear off or when you first begin to feel discomfort. The idea is to have pain medicine in your body before the block wears off. It takes about 30 minutes for the oral (by mouth) pain medicine to become fully effective. If your pain is not controlled, call your surgeon at [phone]. Keep in mind that blocks often wear off in the middle of the night. If you are going to bed and the block has not started to wear off or you have not had any discomfort, consider setting an alarm to go off in 2-3 hours so you can see how your feel. If you notice the block is wearing off or you are starting to have discomfort, you can take your medicine. Always take your pain medication as instructed. Pain medicine can cause sleepiness and slow your breathing if you take more than you need for the level of pain that you are having. Nausea is a common side effect of many pain medicines. You may want to eat something before taking your pain medicine. IV Site Care Some patients, especially those who bruise easily, may get a discolored area on the arm or hand where the IV medicine was given. This may last for several days or weeks afterwards. If you have redness, swelling, tenderness or pain on your IV site where you were given medicine, put a covered ice pack or a heating pad over it for 5 minutes and then remove it. This can be done in the morning, noon, afternoon, and evening for 24 hours. If you still have redness, swelling, tenderness or pain after the above treatment, then call your surgeon at [phone]. Per hospital policy, providers are not able to respond to email. As a result, if you have any questions or concerns, please call the office of Dr. Sandhya lin at [phone]. Pending Studies at Discharge: Yes Studies:: Pathology report. Stand-Alone Forms: [facility], Smoking Cessation Medications and DC Order Prescriptions: New cephalexin 500 mg capsule 500 mg PO TID 7 Days Qty: 21 RF: 0 oxycodone 5 mg tablet 5 mg PO Q4H PRN (Reason: pain) 3 Days Qty: 18 RF: 0 Continued albuterol sulfate [Ventolin HFA] 90 mcg/actuation HFA aerosol inhaler 2 puff INHALATION Q4 PRN (Reason: Shortness Of Breath Or Wheezing) Qty: 18 RF: 3 Biktarvy 50-200-25 mg Tablet 1 tab PO QAM RF: 0 budesonide-formoterol [Symbicort] 80-4.5 mcg/actuation HFA aerosol inhaler 2 puffs INH BID PRN (Reason: SHORT OF BREATH) RF: 0 Latuda 20 mg Tablet 20 mg PO QAM RF: 0 Discontinued Medical Marijauna 1 tab PO UD PRN (Reason: Nausea) RF: 0 Discharge Orders: Discharge Order (Routine); Ordered 09/17/20 Ordered By: Maritza Bejarano Admission Data Admit Date/Time: 09/16/20 12:50 Attending Provider: Sandhya Choi Admit Provider: Sandhya Choi Primary Care Provider: Edgardo Miles V. Other Providers: [facility] Other Interventions: Discharge Summary Assessment (RN) Last Done: 09/17/20 11:06 Coding Level of Care Code 74191 OBS Care - Discharge Diagnoses Status post breast reduction Z98.890
== END 2020-09-17 13:00 | disposition home health service (06) ==
LOC: 3N 05:57 → ASU 05:57

== ENCOUNTER 2021-12-15 09:38 | Observation (INO) ==
--- NOTE | 2021-12-11 08:22 | Anesthesiology Consultation ---
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 Little - Terence Little MD Height/Weight Height: 5 ft 5 in Weight: 87.09 kg Allergies Allergy/AdvReac Type Severity Reaction Status Date / Time acetaminophen AdvReac Unknown not Verified 12/10/21 15:01 allowed to have d/t kidney/liver ibuprofen AdvReac Unknown not Verified 12/10/21 15:01 allowed to have d/t kidney/liver Medications Home Medications Medication Instructions Recorded Confirmed Last Taken Ventolin HFA 90 mcg/actuation 2 puff INHALATION Q4 PRN #18 gm NS 06/13/19 12/10/21 09/02/20 aerosol inhaler (albuterol sulfate) budesonide-formoterol HFA 80 2 puffs INH BID PRN 08/29/19 12/10/21 Unknown mcg-4.5 mcg/actuation aerosol inhaler (Symbicort) denosumab 60 mg/mL subcutaneous 60 mg SUBCUT UD 08/08/21 12/10/21 Unknown syringe (Prolia) paliperidone palmitate 78 mg/0.5 78 mg IM Q30D 10/29/21 12/10/21 Unknown mL intramuscular syringe (Invega Sustenna) sodium sul 1.479 gram-potas ch See Rx Instructions PO .COMPLEX 12/02/21 12/10/21 Unknown 0.188 gram-magnes sul 0.225 gram #24 tab tablet (Sutab) albuterol sulfate 90 mcg/actuation 3 inh INHALATION Q6H PRN 12/10/21 12/10/21 Unknown aerosol inhaler calcium carbonate 500 mg-vitamin 1 tab PO QAM 12/10/21 12/10/21 Unknown D3 10 mcg (400 unit) tablet (Calcium 500 With D) Past Medical History Medical History ADHD Anxiety and depression Asthma LAST USED RESCUE INHALER>LAST WEEK Bipolar 1 disorder Breast hypertrophy in female Diffuse myofascial pain syndrome HX-OSTEOPOROSIS Hip pain, left LABRAL TEAR HIV positive UNDETECTABLE-WAS TREATED Lumbar pain Lumbar spondylosis Migraines Osteoarthritis Osteoporosis Pain of left lower extremity Post traumatic stress disorder Tear of gluteus medius tendon Temporomandibular joint disorder Past Family History Family History Sister Family history of diabetes mellitus Father Family history of diabetes mellitus Mother Family history of diabetes mellitus Other Cancer Gallbladder disease Heart disease Hypertension No family history of adverse response to anesthesia Seizure Denies family history of Ovarian cancer Prostate cancer Myocardial infarction Breast cancer Colorectal cancer Past Surgical History Surgical History H/O bilateral breast reduction surgery History of bladder surgery Bladder slings x2 History of colonoscopy History of esophagogastroduodenoscopy (EGD) History of hysterectomy History of tooth extraction S/P thyroid biopsy GOITER Social History Smoking Status: Former smoker tobacco type: cigarettes Do You Dip or Chew Tobacco: No Smoking End Date: QUIT SEVERAL MONTHS AGO Hx Alcohol Use: Yes Alcohol type: beer, wine and hard liquor alcohol intake frequency: a few times a month Hx Substance Use: Yes substance use type: marijuana Substance Use Type Other:: MARIJUANA INH 2-3 X MONTHLY Lab Results Anesthesia Preop Results Results Anesthesia Widget: WBC 7.35 K/uL (4.8-10.8) 11/26/21 Hgb 12.2 g/dL (12.0-16.0) 11/26/21 Hct 38.2 % (37-47) 11/26/21 Plt 453 K/uL (130-400) H 11/26/21 Na 140 mmol/L (136-145) 11/26/21 K 4.0 mmol/L (3.5-5.1) 11/26/21 Cl 106 mmol/L (98-107) 11/26/21 CO2 29 mmol/L (21-32) 11/26/21 BUN 19 mg/dl (6-23) 11/26/21 Creat 0.99 mg/dl (0.6-1.2) 11/26/21 Glucose Level 95 mg/dl (70-99(Fasting)) 11/26/21 PT 11.0 Seconds (9.0-12.0) 11/26/21 INR 1.0 (0.9-1.1) 11/26/21 Testing Electrocardiogram Date: 09/08/20 Findings: + NSR @
--- NOTE | 2021-12-15 10:19 | History & Physical Report ---
Date of Service December 15, 2021 Assessment & Plan (1) Colon cancer screening: Plan: proceed with colonoscopy. risks/benefits and procedure discussed with patient, who agrees to proceed History of Present Illness Primary Care Provider: Edgardo Miles MD 56 yo female here for colonoscopy. Allergies Allergy/AdvReac Type Severity Reaction Status Date / Time acetaminophen AdvReac Unknown not Verified 12/15/21 09:49 allowed to have d/t kidney/liver ibuprofen AdvReac Unknown not Verified 12/15/21 09:49 allowed to have d/t kidney/liver Home Medications Medication Instructions Recorded Confirmed Type Ventolin HFA 90 mcg/actuation 2 puff INHALATION Q4 PRN #18 gm NS 06/13/19 12/15/21 Rx aerosol inhaler (albuterol sulfate) budesonide-formoterol HFA 80 2 puffs INH BID PRN 08/29/19 12/15/21 History mcg-4.5 mcg/actuation aerosol inhaler (Symbicort) denosumab 60 mg/mL subcutaneous 60 mg SUBCUT UD 08/08/21 12/15/21 History syringe (Prolia) paliperidone palmitate 78 mg/0.5 78 mg IM Q30D 10/29/21 12/15/21 History mL intramuscular syringe (Invega Sustenna) sodium sul 1.479 gram-potas ch See Rx Instructions PO .COMPLEX 12/02/21 12/10/21 Rx 0.188 gram-magnes sul 0.225 gram #24 tab tablet (Sutab) albuterol sulfate 90 mcg/actuation 3 inh INHALATION Q6H PRN 12/10/21 12/15/21 History aerosol inhaler calcium carbonate 500 mg-vitamin 1 tab PO QAM 12/10/21 12/15/21 History D3 10 mcg (400 unit) tablet (Calcium 500 With D) Past Med/Surg History Medical History ADHD Anxiety and depression Asthma LAST USED RESCUE INHALER>LAST WEEK Bipolar 1 disorder Breast hypertrophy in female Diffuse myofascial pain syndrome HX-OSTEOPOROSIS Hip pain, left LABRAL TEAR HIV positive UNDETECTABLE-WAS TREATED Lumbar pain Lumbar spondylosis Migraines Osteoarthritis Osteoporosis Pain of left lower extremity Post traumatic stress disorder Tear of gluteus medius tendon Temporomandibular joint disorder Surgical History H/O bilateral breast reduction surgery History of bladder surgery Bladder slings x2 History of colonoscopy History of esophagogastroduodenoscopy (EGD) History of hysterectomy History of tooth extraction S/P thyroid biopsy GOITER Family History Sister Family history of diabetes mellitus Father Family history of diabetes mellitus Mother Family history of diabetes mellitus Other Cancer Gallbladder disease Heart disease Hypertension No family history of adverse response to anesthesia Seizure Denies family history of Ovarian cancer Prostate cancer Myocardial infarction Breast cancer Colorectal cancer Social History Smoking Status: Former smoker Tobacco Type: Cigarettes Smoking End Date: QUIT SEVERAL MONTHS AGO; Second Hand Exposure: Yes; Do You Dip or Chew Tobacco: No; Hx Alcohol Use: Yes Alcohol type: beer, wine and hard liquor Hx Substance Use: Yes Substance Use Type Other:: MARIJUANA INH 2-3 X MONTHLY Preferred Language: Hungarian Communication Ability: Effective Visual Impairment: No Limitations Hearing Ability: Normal Weblogic Administrator Required: No Beliefs That Will Affect Care: None marital status: Current Living Situation: Alone current occupational status: disabled Other Information That Helps Us Care for You: No Feels Safe at Home: Yes Safety Concerns: Feels Safe At This Time Dental Care, Regularly: Yes Seatbelt Use: always Sunscreen Use: No Assistive Devices: Contacts and Glasses Assistive Devices Comment: WILL WEAR GLASSES DOS/IMPLANTS ALL OVER Physical Exam Constitutional: WD/WN, vitals as above Respiratory: normal respiratory effort, lungs clear to auscultation Cardiovascular: RRR, no murmur, no edema Gastrointestinal (Abdomen): normal bowel sounds, soft, nontender, no hepatosplenomegaly Musculoskeletal: no lower extremity edema Psychiatric: A+Ox3, euthymic affect Results & Data ([facility]) Vital Signs (Past 12 Hours) Vital Signs Temp Pulse Resp BP Pulse Ox 12/15/21 09:51 36.7 C 83 16 123/75 97 Coding Level of Care Code INT OBSERVATION CARE 50M LVL 2 Diagnoses Colon cancer screening Z12.11
[2021-12-15] MEDS ORDERED: SODIUM CHLORIDE 0.9% 1000ML 1,000 ML IV SCH (10:30)
[2021-12-15] MEDS ORDERED: LIDOCAINE 2% 2 ML VIAL/AMP(20MG/ML) INFIL ONE (10:54)
[2021-12-15] MEDS ORDERED: PROPOFOL IV EMULSION 10 MG/ML 20 ML VIAL IV ONE ×2 (10:54→11:11)
--- NOTE | 2021-12-15 11:45 | XRay Report ---
KUB CLINICAL HISTORY: rule out perforation, s/p tear with padlock COMPARISON STUDY: CT of the abdomen and pelvis December 28, 2016. FINDINGS: A closure device projects over the pelvis. This may be within the sigmoid colon. Sensitivit y for detection of free air is diminished on this supine exam but none is identified. No evidence for a bowel obstruction. Pelvic calcifications favor phleboliths. IMPRESSION: Closure device within the pelvis, possibly within the sigmoid colon. No free air identifi ed although sensitivity is significantly diminished on this supine exam. ACT 112: Negative or not required by law. Electronically signed by: Sahil Lopez M.D. 12/15/2021 11:44 AM
--- NOTE | 2021-12-15 11:46 | GI REPORT ---
Addendum Number: 1 Addendum Date: 12/16/2021 4:21:04 PM conclusion: perforation of sigmoid colon due to colonoscopy. Terence Little MD 12/16/2021 4:21:31 PM This report has been signed electronically. Patient Name: Debi Perea Procedure Date: 12/15/2021 10:31 AM Date of : 1965 Admit Type: Outpatient Age: 56 Gender: Female Attending MD: Terence Little MD Procedure: Colonoscopy Providers: Terence Little MD Referring MD: SHANON WILLOUGHBY Indications: Screening for colorectal malignant neoplasm Medicines: Monitored Anesthesia Care Complications: No immediate complications. Estimated blood loss: None. Estimated Blood Loss: Estimated blood loss: none. Procedure: Pre-Anesthesia Assessment: - Prior Anticoagulants: The patient has taken no previous anticoagulant or antiplatelet agents. - ASA Grade Assessment: II - A patient with mild systemic disease. After I obtained informed consent, the scope was passed under direct vision. Throughout the procedure, the patient's blood pressure, pulse, and oxygen saturations were monitored continuously. The Colonoscope was introduced through the anus and advanced to the cecum, identified by appendiceal orifice and ileocecal valve. The colonoscopy was technically difficult and complex. The patient tolerated the procedure well. The quality of the bowel preparation was adequate to identify polyps 6 mm and larger in size. Findings: Two sessile polyps were found in the ascending colon. The polyps were 3 mm in size. These polyps were removed with a cold snare. Resection and retrieval were complete. Estimated blood loss: none. the sigmoid colon was narrow, requiring a pediatric colonoscope, upon withdrawal of the standard colonoscope a perforation was noted in the sigmoid colon. this was closed with a padlock as described below. A perforation was found in the sigmoid colon. This defect was medium-sized. To repair the defect, the tissue edges were approximated and a padlock clip was placed successfully, no bleeding noted after placement. stool studies sent for testing. Impression: - Two 3 mm polyps in the ascending colon, removed with a cold snare. Resected and retrieved. - A perforation was found in the sigmoid colon. Recommendation: - [facility] to [facility] for ongoing care. admit overnight -STAT Ct abd/pelvis with po and iv contrast now -f/u path results -start antibiotics 3-5 day course -supportive care, IVF, NPO Terence Little MD 12/15/2021 11:45:33 AM This report has been signed electronically. Note Initiated On: 12/15/2021 10:31 AM Number of Addenda: 1 I attest to the content of the Intraoperative Record and orders documented therein, exceptions below {[id number]}
[2021-12-15] MEDS ORDERED: PIPERACILLIN/TAZOBACTAM 4.5 GM in DEXTROSE 5% 100 ML IV ONE (12:00)
--- NOTE | 2021-12-15 12:25 | History & Physical Report ---
Date of Service December 15, 2021 Assessment & Plan (1) Perforation of sigmoid colon: Plan: Perforation of sigmoid colon during screening colonoscopy for incontinence of stool - Clipped by GI when noticed upon withdrawing of colonoscope - Will Keep NPO - CT abdomen and pelvis with IV and Oral Contrast pending- no extravasation interpreted on imaging- conservative care - Abdominal exam soft, pain with deep palpation, no nausea or fevers - General Surgery Consult placed - Zosyn 4.5 GM IV q8 hour - Lactate, CBC- follow daily (2) HIV disease: Plan: Follows with ID gets monthly injection - viral load undetectable - CD4 count- 1035 (12/10) (3) Hip pain, left: Plan: Follows with pain services - MRI was obtained 12/02/21- interpreted by radiology with band like focus of increased signal within the left gluteus with tendon intact and surrounding muscular edema- could represent strain - T2 subq tissues of bialteral thighs nonspecific - chronic labral tear (4) Bipolar 1 disorder: Plan: Monthly injections - Patient feels her symptoms are controlled (5) Asthma: Plan: Controlled on current therapy - Albuterol PRN - Symbicort 2 puffs INH BID (6) Osteoarthritis: Plan: Osteoarthritis with Osteopetrosis - Follows with Dr. Frederick- Prolia injections - Follows up at end of the month History of Present Illness Primary Care Provider: Edgardo Miles MD 56 YOF with medical history of: Asthma, Osteoarthritis, HIV positive (follows with ID- cabneuva injections), chronic pain, PTSD, Bi-Polar(Invega injections), ADHD, thyroid nodule, neck pain. Patient being admitted from endoscopy suite following colonoscopy. Patient ws having colonoscopy performed secondary to episodes of stool incontinence, following the endoscopy upon scope withdrawal proceduralist noted perforation at the sigmoid colon. He was able to clip this. Patient is currently drinking oral contrast while pending CT scan with IV and oral contrast of her abdomen and pelvis. The patient does have pain to bilateral lower quadrants, abdomen is soft, hypoactive bowel sounds, and with pain with deep palpation, vital signs are stable. Hospitalist service was consulted for admission. Patient evaluated in the endoscopy suite. Will send labs now for CBC, Lactate, BMP as well as start on Zosyn for GI source coverage. Will consult General Surgery for following and evaluation following the above imaging. Patient will be admitted to PCU for monitoring of sepsis or worsening of clinical picture. COVID test 12/11/21- NEGATIVE- Test on admission ordered. Allergies Allergy/AdvReac Type Severity Reaction Status Date / Time acetaminophen AdvReac Unknown not Verified 12/15/21 09:49 allowed to have d/t kidney/liver ibuprofen AdvReac Unknown not Verified 12/15/21 09:49 allowed to have d/t kidney/liver Home Medications Medication Instructions Recorded Confirmed Type Ventolin HFA 90 mcg/actuation 2 puff INHALATION Q4 PRN #18 gm NS 06/13/19 12/15/21 Rx aerosol inhaler (albuterol sulfate) budesonide-formoterol HFA 80 2 puffs INH BID PRN 08/29/19 12/15/21 History mcg-4.5 mcg/actuation aerosol inhaler (Symbicort) denosumab 60 mg/mL subcutaneous 60 mg SUBCUT UD 08/08/21 12/15/21 History syringe (Prolia) paliperidone palmitate 78 mg/0.5 78 mg IM Q30D 10/29/21 12/15/21 History mL intramuscular syringe (Invega Sustenna) sodium sul 1.479 gram-potas ch See Rx Instructions PO .COMPLEX 12/02/21 12/10/21 Rx 0.188 gram-magnes sul 0.225 gram #24 tab tablet (Sutab) albuterol sulfate 90 mcg/actuation 3 inh INHALATION Q6H PRN 12/10/21 12/15/21 History aerosol inhaler calcium carbonate 500 mg-vitamin 1 tab PO QAM 12/10/21 12/15/21 History D3 10 mcg (400 unit) tablet (Calcium 500 With D) ciprofloxacin HCl 500 mg tablet 500 mg PO BID #20 tab 12/16/21 Rx metronidazole 500 mg tablet 500 mg PO Q8H #30 tab 12/16/21 Rx Past Med/Surg History Medical History ADHD Anxiety and depression Asthma LAST USED RESCUE INHALER>LAST WEEK Bipolar 1 disorder Breast hypertrophy in female Diffuse myofascial pain syndrome HX-OSTEOPOROSIS Hip pain, left LABRAL TEAR HIV positive UNDETECTABLE-WAS TREATED Lumbar pain Lumbar spondylosis Migraines Osteoarthritis Osteoporosis Pain of left lower extremity Post traumatic stress disorder Tear of gluteus medius tendon Temporomandibular joint disorder Surgical History H/O bilateral breast reduction surgery History of bladder surgery Bladder slings x2 History of colonoscopy History of esophagogastroduodenoscopy (EGD) History of hysterectomy History of tooth extraction S/P thyroid biopsy GOITER Family History Sister Family history of diabetes mellitus Father Family history of diabetes mellitus Mother Family history of diabetes mellitus Other Cancer Gallbladder disease Heart disease Hypertension No family history of adverse response to anesthesia Seizure Denies family history of Ovarian cancer Prostate cancer Myocardial infarction Breast cancer Colorectal cancer Social History Smoking Status: Former smoker Tobacco Type: Cigarettes Second Hand Exposure: Yes; Hx Alcohol Use: Yes Alcohol type: beer, wine and hard liquor Hx Substance Use: Yes Substance Use Type Other:: MARIJUANA INH 2-3 X MONTHLY Preferred Language: Mongolian Communication Ability: Effective Visual Impairment: No Limitations Hearing Ability: Normal 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 Beliefs That Will Affect Care: None marital status: Current Living Situation: Alone current occupational status: disabled Feels Safe at Home: Yes Dental Care, Regularly: Yes Seatbelt Use: always Sunscreen Use: No Assistive Devices: Contacts and Glasses Review of Systems Review of Systems: REVIEW OF SYSTEMS: Constitutional: No fever, sweats or chills Eyes: No diplopia, no worsening or blurred vision ENT: normal hearing, no trouble swallowing Respiratory: No cough, sputum, dyspnea at rest or on exertion Cardiovascular: No chest pain, tightness or palpitations Abdomen: (+) pain, incontinence, nausea, NO vomiting, diarrhea or constipation Musculoskeletal: (+) back and knee, joint pain, calf pain, swelling Neurologic: No weakness, numbness/tingling, or balance problems Psychiatric: (+) PTSD, Anxiety/depression, BiPolar Skin: No rash or itch Physical Exam Physical Exam: PHYSICAL EXAM: General: awake, alert, no apparent distress- calm cooperative Head: Normocephalic, atraumatic ENT: PERRL, EOMI, no pharyngeal exudate, mucous membranes moist Neuro: AAO x 3, speech clear and appropriate, strength intact bilaterally 5/5, sensation intact and equal all extremities and dermatomes, no pronator drift Chest: equal rise and fall of the chest, no accessory muscle use, no heaves or thrills, Clear to auscultation, on room air, Cardiac: Regular rate and rhythm, , skin warm dry, cap refill <3 seconds, peripheral pulses +2 no JVD, no murmur, no JVD, no edema GI: hypoactive bowel sounds, pain with deep palpation to bilateral lower quads, soft, no rebound : Spontaneously voiding, no pain, no CVA tenderness, Extremities: Normal inspection, no peripheral edema or erythema, calfs nontender to palpation Psych: Normal mood and affect Skin: no rash or erythema Results & Data Results & Data ([facility]) Vital Signs (Past 12 Hours) Vital Signs Temp Pulse Resp BP Pulse Ox 12/15/21 12:09 78 16 122/88 99 12/15/21 11:53 77 16 110/80 99 12/15/21 11:38 79 16 123/75 96 12/15/21 11:23 77 16 99/77 L 95 12/15/21 09:51 36.7 C 83 16 123/75 97 Laboratory Results Abnormal lab results 12/15/21 Range/Units 12:25 RDW Coeff of Rohini 14.7 H (11.5-14.5) % Diagnostic Findings KUB X-Ray 12/15/21 11:19 KUB CLINICAL HISTORY: rule out perforation, s/p tear with padlock COMPARISON STUDY: CT of the abdomen and pelvis December 28, 2016. FINDINGS: A closure device projects over the pelvis. This may be within the sigmoid colon. Sensitivity for detection of free air is diminished on this supine exam but none is identified. No evidence for a bowel obstruction. Pelvic calcifications favor phleboliths. IMPRESSION: Closure device within the pelvis, possibly within the sigmoid colon. No free air identified although sensitivity is significantly diminished on this supine exam. ACT 112: Negative or not required by law. Electronically signed by: Sahil Lopez M.D. 12/15/2021 11:44 AM Abdomen/Pelvis CT 12/15/21 11:30 CT SCAN OF THE ABDOMEN AND PELVIS WITH IV CONTRAST CLINICAL HISTORY: Sigmoid colon perforation. COMPARISON STUDY: Abdominal radiograph dated 12/15/2021. Abdominal CT dated 12/28/2016. TECHNIQUE: Following the IV administration of 94 cc of Optiray 320, CT scan of the abdomen and pelvis is performed from the lung bases to the proximal femora. Images are reviewed in the axial, sagittal, and coronal planes. IV contrast was administered without complication. Oral contrast was utilized. A dose lowering technique was utilized adhering to the principles of ALARA. CT DOSE: 629.27 mGy.cm FINDINGS: Lung bases: The heart is normal in size and without pericardial effusion. There are trace pleural effusions with dependent atelectasis. Liver: The contrast-enhanced liver is normal in size, contour, and attenuation. There is no intrahepatic biliary ductal dilatation. The hepatic veins and portal veins are patent. Gallbladder: Unremarkable. Spleen: Normal in size and attenuation. Pancreas: Unremarkable. Adrenal glands: Unremarkable. Kidneys: The contrast enhanced kidneys are normal in size and without hydronephrosis. The kidneys enhance symmetrically. A 2.7 cm cyst is again seen arising from the upper pole of the right kidney. Abdominal vasculature: The abdominal aorta is normal in course and caliber. Bowel: There is no bowel obstruction. Enteric contrast reaches the rectum. Clips are noted in the sigmoid. There is no actual contrast identified. The appendix is well-visualized and normal. Peritoneum: Tiny foci of intraperitoneal free air are seen immediately adjacent the sigmoid colon. Data Architect foci are seen on images #282 and #292. Abdominal ascites is identified. There is a fat-containing umbilical hernia. Lymphadenopathy: None. Pelvic viscera: The bladder is normal as visualized. The uterus is surgically absent. No adnexal lesion is seen. There is a fat-containing hernia in the left groin. Skeletal structures: No lytic or blastic lesions are seen. IMPRESSION: 1. Clips are noted in the sigmoid colon. Enteric contrast reaches the rectum, with no extraluminal contrast identified. 2. Tiny foci of intraperitoneal free air are seen immediately adjacent to the sigmoid colon. There is no distant intraperitoneal free air below the diaphragm. 3. Trace pleural effusions. 4. There is no bowel obstruction. ACT 112: Negative or not required by law. Electronically signed by: Jez Ty M.D. 12/15/2021 2:10 PM Medications Administered Home Medications Ventolin HFA 90 mcg/actuation aerosol inhaler (albuterol sulfate) 2 puff INHALATION Q4 PRN #18 gm NS 06/13/19 [Rx Confirmed 12/15/21] budesonide-formoterol HFA 80 mcg-4.5 mcg/actuation aerosol inhaler (Symbicort) 2 puffs INH BID PRN 08/29/19 [History Confirmed 12/15/21] denosumab 60 mg/mL subcutaneous syringe (Prolia) 60 mg SUBCUT UD 08/08/21 [History Confirmed 12/15/21] paliperidone palmitate 78 mg/0.5 mL intramuscular syringe (Invega Sustenna) 78 mg IM Q30D 10/29/21 [History Confirmed 12/15/21] sodium sul 1.479 gram-potas ch 0.188 gram-magnes sul 0.225 gram tablet (Sutab) See Rx Instructions PO .COMPLEX #24 tab 12/02/21 [Rx Confirmed 12/10/21] albuterol sulfate 90 mcg/actuation aerosol inhaler 3 inh INHALATION Q6H PRN 12/10/21 [History Confirmed 12/15/21] calcium carbonate 500 mg-vitamin D3 10 mcg (400 unit) tablet (Calcium 500 With D) 1 tab PO QAM 12/10/21 [History Confirmed 12/15/21] Active Medications Sodium Chloride (Nss 1000ml) 1,000 mls @ 15 mls/hr IV .Q24H REGIS Stop: 12/16/21 10:29 Discontinued Medications Piperacillin Sod/Tazobactam (Sod 4.5 gm/ Dextrose) 120 mls @ 200 mls/hr IV NOW ONE; Protocol Stop: 12/15/21 12:35 Last Admin: 12/15/21 12:45 Dose: 200 mls/hr Documented by: [id number] ECG Additional Comments: ECG- obtain on admission Code Status & VTE Plan Code Status CODE: FULL VTE: SCDS VTE Prophylaxis Plan VTE Prophylaxis will be ordered: Yes Supervising Physician Co-Signing Physician Notes I personally saw and examined the patient. I verified all napoles points and agree with PINKY Trevino with the following exceptions and/or additions: 56 year old female with perforation s/p colonoscopy performed earlier today. O/E Abdo - mild suprapubic tenderness without guarding or rebound A/P S/p coloscopy perforation - IV Zosyn, CT A/P with IV and oral contrast. Consult gastroenterology. PG Care Time/CCT Total # of Minutes Spent Total Time Spent with Patient: Total time spent is greater than 50% in coordination of care (as documented) at patient's floor/unit and/or counseling patient: Coding Level of Care Code 07426 Initial Inpt Care Lvl 2 Diagnoses Perforation of sigmoid colon K63.1 HIV disease B20 Hip pain, left M25.552 Bipolar 1 disorder F31.9 Asthma J45.909 Osteoarthritis M19.90
[2021-12-15 12:49] LABS: Basophils # (auto) 0.01 K/uL (0-0.2); Basophils % (auto) 0.1 %; Eosinophils # (auto) 0.28 K/uL (0-0.5); Eosinophils % (auto) 3.3 %; Hematocrit (blood only) 39.4 % (37-47); Immature Granulocytes # (auto) 0.02 K/uL (0.00-0.02); Immature Granulocytes % (auto) 0.2 %; Lymphocytes # (auto) 2.07 K/uL (1.2-3.4); Lymphocytes % (auto) 24.5 %; Mean Corpuscular Hemoglobin 26.9 pg (25-34); Mean Corpuscular Volume 81.4 fL (80-100); Mean Platelet Volume 9.3 fL (7.4-10.4); Monocytes # (auto) 0.45 K/uL (0.11-0.59); Monocytes % (auto) 5.3 %; Neutrophils # (auto) 5.61 K/uL (1.4-6.5); Neutrophils % (auto) 66.6 %; Platelet Count 341 K/uL (130-400); RDW Coefficient of Variation 14.7 % (11.5-14.5); RDW Standard Deviation 43.1 fL (36.4-46.3); Red Blood Count 4.84 M/uL (4.2-5.4); White Blood Count 8.44 K/uL (4.8-10.8)
[2021-12-15 13:03] LABS: INR 1.1 (0.9-1.1); Partial Thromboplastin Ratio 1.2; Prothrombin Time 11.4 Seconds (9.0-12.0)
[2021-12-15 13:20] LABS: Albumin Globulin Ratio 1.3 (0.9-2); BUN Creatinine Ratio 15.1 (10-20); Bilirubin,Total 0.5 mg/dl (0.2-1.0); Calcium 9.4 mg/dl (8.5-10.1); Creatinine Clr Calc Pharmacy 74.8 ml/min; Est GFR (African American) 80.8 ml/min; Est GFR (Non-African American) 69.7 ml/min; Globulin 3.2 gm/dl (2.5-4.0); Potassium 3.7 mmol/L (3.5-5.1); Total Protein 7.2 gm/dl (6.0-8.3)
[2021-12-15] MEDS ORDERED: OPTIRAY 320 100ml IV ONE (13:51)
--- NOTE | 2021-12-15 14:11 | CT Scan Report ---
CT SCAN OF THE ABDOMEN AND PELVIS WITH IV CONTRAST CLINICAL HISTORY: Sigmoid colon perforation. COMPARISON STUDY: Abdominal radiograph dated 12/15/2021. Abdominal CT dated 12/28/2016. TECHNIQUE: Following the IV administration of 94 cc of Optiray 320, CT scan of the abdomen and pelvi s is performed from the lung bases to the proximal femora. Images are reviewed in the axial, sagittal , and coronal planes. IV contrast was administered without complication. Oral contrast was utilized. A dose lowering technique was utilized adhering to the principles of ALARA. CT DOSE: 629.27 mGy.cm FINDINGS: Lung bases: The heart is normal in size and without pericardial effusion. There are trace pleural eff usions with dependent atelectasis. Liver: The contrast-enhanced liver is normal in size, contour, and attenuation. There is no intrahepa tic biliary ductal dilatation. The hepatic veins and portal veins are patent. Gallbladder: Unremarkable. Spleen: Normal in size and attenuation. Pancreas: Unremarkable. Adrenal glands: Unremarkable. Kidneys: The contrast enhanced kidneys are normal in size and without hydronephrosis. The kidneys enh ance symmetrically. A 2.7 cm cyst is again seen arising from the upper pole of the right kidney. Abdominal vasculature: The abdominal aorta is normal in course and caliber. Bowel: There is no bowel obstruction. Enteric contrast reaches the rectum. Clips are noted in the sig moid. There is no actual contrast identified. The appendix is well-visualized and normal. Peritoneum: Tiny foci of intraperitoneal free air are seen immediately adjacent the sigmoid colon. Re presentative foci are seen on images #282 and #292. Abdominal ascites is identified. There is a fat-c ontaining umbilical hernia. Lymphadenopathy: None. Pelvic viscera: The bladder is normal as visualized. The uterus is surgically absent. No adnexal lesi on is seen. There is a fat-containing hernia in the left groin. Skeletal structures: No lytic or blastic lesions are seen. IMPRESSION: 1. Clips are noted in the sigmoid colon. Enteric contrast reaches the rectum, with no extraluminal co ntrast identified. 2. Tiny foci of intraperitoneal free air are seen immediately adjacent to the sigmoid colon. There is no distant intraperitoneal free air below the diaphragm. 3. Trace pleural effusions. 4. There is no bowel obstruction. ACT 112: Negative or not required by law. Electronically signed by: Jez Ty M.D. 12/15/2021 2:10 PM
--- NOTE | 2021-12-15 14:56 | Anesthesiology Progress Note ---
Date of Service December 15, 2021 Anesthesia Post Procedure Vital Signs Vital Signs: Temp Pulse Resp BP Pulse Ox 12/15/21 12:09 78 16 122/88 99 12/15/21 11:53 77 16 110/80 99 12/15/21 11:38 79 16 123/75 96 12/15/21 11:23 77 16 99/77 L 95 12/15/21 09:51 36.7 C 83 16 123/75 97 Transfer of Care Handoff Completed per policy Notes Mental Status: alert / awake / arousable and participated in evaluation Patient Amnestic to Procedure: Yes Nausea / Vomiting: adequately controlled Pain: adequately controlled Airway Patency, RR, SpO2: stable & adequate BP & HR: stable & adequate Hydration State: stable & adequate Anesthetic Complications: no major complications apparent and Pt Satisfied with anesthetic care
[2021-12-15] MEDS ORDERED: BUDESONIDE/FORMOTEROL FUMARATE 80/4.5 60 PUFFS/INHALER INH PRN (15:16)
[2021-12-15] MEDS ORDERED: ALBUTEROL HFA 8 GM INHALER INH PRN ×2 (15:16)
--- NOTE | 2021-12-15 15:24 | Surgery Consultation ---
Date of Consultation December 15, 2021 Assessment & Plan (1) Perforation of sigmoid colon: CT with few small air bubbles only no acute abdominal findings agree with observation, abx and bowel rest overnight seen with Dr. Dodge Supervising Physician Co-Signing Physician Notes Patient seen and examined, agree with above. 56 y/o female underwent colonoscopy today, during withdrawal small perforation in sigmoid colon noted and treated with clips. No pain except for normal cramping. On exam abd soft, nt, nd. CT personally reviewed, small maranda of intraperitoneal air but no extravasation of contrast. Admitted to medicine, NPO, IVF's, abx, monitor overnight. Surgery will follow. History of Present Illness Attending Physician: Terence Little MD History of Present Illness 56 y/o female underwent colonoscopy today for incontinence. Perforation was noted in the sigmoid colon during withdrawal and was clipped. Patient is resting in recovery area, has some mild right side abdominal pain. CT was recently completed. Allergies Allergy/AdvReac Type Severity Reaction Status Date / Time acetaminophen AdvReac Unknown not Verified 12/15/21 09:49 allowed to have d/t kidney/liver ibuprofen AdvReac Unknown not Verified 12/15/21 09:49 allowed to have d/t kidney/liver Home Medications Medication Instructions Recorded Confirmed Type Ventolin HFA 90 mcg/actuation 2 puff INHALATION Q4 PRN #18 gm NS 06/13/19 12/15/21 Rx aerosol inhaler (albuterol sulfate) budesonide-formoterol HFA 80 2 puffs INH BID PRN 08/29/19 12/15/21 History mcg-4.5 mcg/actuation aerosol inhaler (Symbicort) denosumab 60 mg/mL subcutaneous 60 mg SUBCUT UD 08/08/21 12/15/21 History syringe (Prolia) paliperidone palmitate 78 mg/0.5 78 mg IM Q30D 10/29/21 12/15/21 History mL intramuscular syringe (Invega Sustenna) sodium sul 1.479 gram-potas ch See Rx Instructions PO .COMPLEX 12/02/21 12/10/21 Rx 0.188 gram-magnes sul 0.225 gram #24 tab tablet (Sutab) albuterol sulfate 90 mcg/actuation 3 inh INHALATION Q6H PRN 12/10/21 12/15/21 History aerosol inhaler calcium carbonate 500 mg-vitamin 1 tab PO QAM 12/10/21 12/15/21 History D3 10 mcg (400 unit) tablet (Calcium 500 With D) Patient History Medical History ADHD Anxiety and depression Asthma LAST USED RESCUE INHALER>LAST WEEK Bipolar 1 disorder Breast hypertrophy in female Diffuse myofascial pain syndrome HX-OSTEOPOROSIS Hip pain, left LABRAL TEAR HIV positive UNDETECTABLE-WAS TREATED Lumbar pain Lumbar spondylosis Migraines Osteoarthritis Osteoporosis Pain of left lower extremity Post traumatic stress disorder Tear of gluteus medius tendon Temporomandibular joint disorder Surgical History H/O bilateral breast reduction surgery History of bladder surgery Bladder slings x2 History of colonoscopy History of esophagogastroduodenoscopy (EGD) History of hysterectomy History of tooth extraction S/P thyroid biopsy GOITER Family History Sister Family history of diabetes mellitus Father Family history of diabetes mellitus Mother Family history of diabetes mellitus Other Cancer Gallbladder disease Heart disease Hypertension No family history of adverse response to anesthesia Seizure Denies family history of Ovarian cancer Prostate cancer Myocardial infarction Breast cancer Colorectal cancer Social History Smoking Status: Former smoker Tobacco Type: Cigarettes Smoking End Date: QUIT SEVERAL MONTHS AGO; Second Hand Exposure: Yes; Do You Dip or Chew Tobacco: No; Hx Alcohol Use: Yes Alcohol type: beer, wine and hard liquor Hx Substance Use: Yes Substance Use Type Other:: MARIJUANA INH 2-3 X MONTHLY Preferred Language: Hebrew Communication Ability: Effective Visual Impairment: No Limitations Hearing Ability: Normal Picker Machine Operator Required: No Beliefs That Will Affect Care: None marital status: Current Living Situation: Alone current occupational status: disabled Other Information That Helps Us Care for You: No Feels Safe at Home: Yes Safety Concerns: Feels Safe At This Time Dental Care, Regularly: Yes Seatbelt Use: always Sunscreen Use: No Assistive Devices: Contacts and Glasses Assistive Devices Comment: WILL WEAR GLASSES DOS/IMPLANTS ALL OVER Review of Systems Gastrointestinal: + abdominal pain and + fecal incontinence; no nausea and no vomiting Physical Exam Constitutional: WD/WN, vitals as above Respiratory: normal respiratory effort, lungs clear to auscultation normal respiratory effort Cardiovascular: Rate/Rhythm: regular rate Gastrointestinal (Abdomen): Inspection/Auscultation: abdomen not distended Percussion/Palpation: + abdomen tender (minimal) and abdomen soft; no guarding Results & Data ([facility]) Vital Signs (Past 12 Hours) Vital Signs Temp Pulse Resp BP BP Pulse Ox 12/15/21 15:16 37.0 C 78 14 133/76 96 12/15/21 12:09 78 16 122/88 99 12/15/21 11:53 77 16 110/80 99 12/15/21 11:38 79 16 123/75 96 12/15/21 11:23 77 16 99/77 L 95 12/15/21 09:51 36.7 C 83 16 123/75 97 PG Care Time/CCT Total # of Minutes Spent Total Time Spent with Patient: Total time spent is greater than 50% in coordination of care (as documented) at patient's floor/unit and/or counseling patient: Coding Level of Care Code 82226 Office/OBS Consult Lvl 2 Diagnoses Perforation of sigmoid colon K63.1
[2021-12-15] MEDS: LACTATED RINGER'S 1,000 ML IV SCH (15:43)
[2021-12-15] MEDS: ACETAMINOPHEN 1,000 MG/100 ML VIAL IV PRN (15:43)
[2021-12-15] MEDS: PIPERACILLIN/TAZOBACTAM 4.5 GM in DEXTROSE 5% 100 ML IV SCH (17:40)
[2021-12-15] MEDS: MoRPHine SULFATE 2 MG/ML CARP IV PRN (19:19)
[2021-12-16] MEDS: ACETAMINOPHEN 1,000 MG/100 ML VIAL IV PRN (01:05)
[2021-12-16] MEDS: MoRPHine SULFATE 2 MG/ML CARP IV PRN ×2 (01:34→10:16)
[2021-12-16] MEDS: LACTATED RINGER'S 1,000 ML IV SCH (02:45)
[2021-12-16] MEDS ORDERED: SODIUM CHLORIDE 0.9% 1000ML 1,000 ML IV SCH (02:45)
[2021-12-16] MEDS: PIPERACILLIN/TAZOBACTAM 4.5 GM in DEXTROSE 5% 100 ML IV SCH ×2 (02:55→10:14)
[2021-12-16 03:17] LABS: Adenovirus F 40/41 PCR Not Detected (NotDetected); Astrovirus PCR Not Detected (NotDetected); Campylobacter PCR Not Detected (NotDetected); Clostridium diff Toxin A/B PCR Not Detected (NotDetected); Cryptosporidium PCR Not Detected (NotDetected); Cyclospora cayetanensis PCR Not Detected (NotDetected); Entamoeba histolytica PCR Not Detected (NotDetected); Enteroaggregative E.coli(EAEC) Not Detected (NotDetected); Enteropathogenic E.coli (EPEC) Not Detected (NotDetected); Enterotoxigenic E.coli (ETEC) Not Detected (NotDetected); Giardia lamblia PCR Not Detected (NotDetected); Norovirus GI/GII PCR Not Detected (NotDetected); Plesiomonas shigelloides PCR Not Detected (NotDetected); Rotavirus A PCR Not Detected (NotDetected); Salmonella PCR Not Detected (NotDetected); Sapovirus PCR Not Detected (NotDetected); Shiga-like Toxin E.coli (STEC) Not Detected (NotDetected); Shigella/Enteroinvasive E.coli Not Detected (NotDetected); Vibrio cholerae PCR Not Detected (NotDetected); Vibrio species PCR Not Detected (NotDetected); Yersinia enterocolitica PCR Not Detected (NotDetected)
[2021-12-16 07:09] LABS: Basophils # (auto) 0.04 K/uL (0-0.2); Basophils % (auto) 0.5 %; Eosinophils # (auto) 0.33 K/uL (0-0.5); Eosinophils % (auto) 4.3 %; Hematocrit (blood only) 36.4 % (37-47); Hemoglobin 12.2 g/dL (12.0-16.0); Immature Granulocytes # (auto) 0.02 K/uL (0.00-0.02); Immature Granulocytes % (auto) 0.3 %; Lymphocytes # (auto) 2.63 K/uL (1.2-3.4); Lymphocytes % (auto) 34.6 %; Mean Corpuscular Hemoglobin 27.1 pg (25-34); Mean Corpuscular Hgb Conc 33.5 g/dL (32-36); Mean Corpuscular Volume 80.7 fL (80-100); Mean Platelet Volume 9.5 fL (7.4-10.4); Monocytes # (auto) 0.66 K/uL (0.11-0.59); Monocytes % (auto) 8.7 %; Neutrophils # (auto) 3.93 K/uL (1.4-6.5); Neutrophils % (auto) 51.6 %; Platelet Count 329 K/uL (130-400); RDW Coefficient of Variation 14.8 % (11.5-14.5); RDW Standard Deviation 43.3 fL (36.4-46.3); Red Blood Count 4.51 M/uL (4.2-5.4); White Blood Count 7.61 K/uL (4.8-10.8)
[2021-12-16 07:27] LABS: BUN Creatinine Ratio 12.6 (10-20); Calcium 8.5 mg/dl (8.5-10.1); Creatinine Clr Calc Pharmacy 67.5 ml/min; Est GFR (African American) 71.4 ml/min; Est GFR (Non-African American) 61.6 ml/min; Magnesium 1.9 mg/dl (1.7-2.4); Potassium 3.4 mmol/L (3.5-5.1)
--- NOTE | 2021-12-16 08:06 | Electrocardiogram Report ---
Test Reason : Blood Pressure : / mmHG Vent. Rate : 080 BPM Atrial Rate : 080 BPM P-R Int : 150 ms QRS Dur : 096 ms QT Int : 478 ms P-R-T Axes : 055 040 047 degrees QTc Int : 551 ms Normal sinus rhythm Diffuse Minor Nonspecific T wave abnormality Abnormal ECG When compared with ECG of 10-SEP-2020 11:08, Nonspecific T wave abnormality now evident in Inferior leads Nonspecific T wave abnormality now evident in Anterolateral leads Confirmed by Levy Mcadniels ([id number]) on 12/16/2021 8:05:40 AM Referred By: Desmond Michael Confirmed By:Levy Mcdaniels
[2021-12-16] MEDS ORDERED: FLUTICASONE/VILANTEROL 100/25MCG 14 PUFFS/INHALER INH SCH (09:00)
--- NOTE | 2021-12-16 09:02 | Communication Note ---
Date of Service: December 16, 2021 pt seen this morning doing well, pain is improved, vital signs normal, no leukocytosis on labs, afebrile. recs: --advance diet as tolerated --complete 10 day course of cipro/flagyl as an outpatient --follow up with me in 2 weeks --ok to d/c home if tolerates diet from gi perspective. Terence Little MD Gastroenterology
--- NOTE | 2021-12-16 11:03 | Communication Note ---
Date of Service: December 16, 2021 By CMS guidelines, a determination that the admission or continued stay is not medically necessary has been made by a member of the UR committee and a phys ician for this hospital stay, therefore a Code 44 will be completed and the Inpatient admission will be changed to outpatient.
--- NOTE | 2021-12-16 11:17 | Surgery Progress Note ---
Date of Service December 16, 2021 Assessment & Plan (1) Perforation of sigmoid colon: Plan: exam benign labs stable advancing diet will sign off Admission and Anticipated Discharge Date Admission Date: December 15, 2021 Supervising Physician Co-Signing Physician Notes patient discharged prior to my visit. PPD colonoscopy with small perf controlled with clips. Afvss, labs normal. return precautions given, f/u with GI as scheduled. Subjective some crampy pain, tolerating full liquids, loose BMs Physical Exam Gastrointestinal (Abdomen): Inspection/Auscultation: abdomen not distended Percussion/Palpation: abdomen soft; abdomen nontender Results & Data ([facility]) Vital Signs (Past 12 Hours) Vital Signs Temp Pulse Resp BP Pulse Ox 12/16/21 07:04 36.6 C 84 20 104/67 96 12/16/21 03:16 36.8 C 85 20 135/67 95 PG Care Time/CCT Total # of Minutes Spent Total Time Spent with Patient: Total time spent is greater than 50% in coordination of care (as documented) at patient's floor/unit and/or counseling patient: Coding Level of Care Code 34640 Subseq Hosp Care Lvl 1 Diagnoses Perforation of sigmoid colon K63.1
--- NOTE | 2021-12-16 13:54 | Discharge Summary ---
Date of Service December 16, 2021 Admission HPI Per Admitting Provider 56 YOF with medical history of: Asthma, Osteoarthritis, HIV positive (follows with ID- cabneuva injections), chronic pain, PTSD, Bi-Polar(Invega injections), ADHD, thyroid nodule, neck pain. Patient being admitted from endoscopy suite following colonoscopy. Patient ws having colonoscopy performed secondary to episodes of stool incontinence, following the endoscopy upon scope withdrawal proceduralist noted perforation at the sigmoid colon. He was able to clip this. Patient is currently drinking oral contrast while pending CT scan with IV and oral contrast of her abdomen and pelvis. The patient does have pain to bilateral lower quadrants, abdomen is soft, hypoactive bowel sounds, and with pain with deep palpation, vital signs are stable. Hospitalist service was consulted for admission. Patient evaluated in the endoscopy suite. Will send labs now for CBC, Lactate, BMP as well as start on Zosyn for GI source coverage. Will consult General Surgery for following and evaluation following the above imaging. Patient will be admitted to PCU for monitoring of sepsis or worsening of clinical picture. COVID test 12/11/21- NEGATIVE- Test on admission ordered. Principal Diagnosis Perforated sigmoid colon from colonoscopy Discharge Exam Constitutional WD/WN, vitals as above Eyes EOM intact bilaterally; no conjunctival abnormality ENMT external ear and nose normal, oropharynx normal Neck trachea midline, no thyromegaly normal visual inspection Respiratory normal respiratory effort, lungs clear to auscultation no respiratory distress Cardiovascular RRR, no murmur, no edema Gastrointestinal (Abdomen) Inspection/Auscultation: abdomen normal to inspection; abdomen not distended Musculoskeletal no cyanosis or clubbing, extremities motor strength 5/5 Skin no rashes, warm and dry Neurologic moves all extremities and awake Psychiatric Orientation: alert, oriented to person and cooperative Discharge Data Allergies Allergy/AdvReac Type Severity Reaction Status Date / Time acetaminophen AdvReac Unknown not Verified 12/15/21 09:49 allowed to have d/t kidney/liver ibuprofen AdvReac Unknown not Verified 12/15/21 09:49 allowed to have d/t kidney/liver Consultations 12/15/21 15:16 Consult General Surgery Routine Procedures Performed Operation Date: 12/15/21 10:30 Actual Procedures p Colonoscopy Polypectomy - Terence Little MD Ordered Studies 12/15/21 11:30 CT abd pelvis oral and IV con Stat Hospital Course (1) Perforation of sigmoid colon: Perforation of sigmoid colon during screening colonoscopy for incontinence of stool. - Clipped by GI when noticed upon withdrawing of colonoscope - CT abdomen and pelvis with IV and Oral Contrast pending- no extravasation interpreted on imaging- conservative care - Abdominal exam soft, pain with deep palpation, no nausea or fevers - General Surgery Consult placed - Zosyn 4.5 GM IV q8 hour = No complications. [place] well by 12/16. Tolerated diet. GI gave sign off for discharge on 10 days of abx. (2) HIV disease: Follows with ID gets monthly injection - viral load undetectable - CD4 count- 1035 (12/10) (3) Hip pain, left: Follows with pain services - MRI was obtained 12/02/21- interpreted by radiology with band like focus of increased signal within the left gluteus with tendon intact and surrounding muscular edema- could represent strain - T2 subq tissues of bialteral thighs nonspecific - chronic labral tear (4) Bipolar 1 disorder: Monthly injections - Patient feels her symptoms are controlled (5) Asthma: Controlled on current therapy - Albuterol PRN - Symbicort 2 puffs INH BID (6) Osteoarthritis: Osteoarthritis with Osteopetrosis - Follows with Dr. Frederick- Prolia injections - Follows up at end of the month Total Time Total Time Spent Total Time Spent (In Minutes): 35 Discharge Plan Discharge Items Patient Disposition: Home - Self-Care Reason For Visit: SIGMOID COLON PERFORATION Discharge Diagnosis: Sigmoid colon perforation Activity: Resume your previous activity Non-emergency contact: Primary Care Provider Call non-emergency contact if: your symptoms worsen Follow-up/Referrals: Edgardo Miles MD [Primary Care Provider] - (Follow up appointment scheduled with Olesya Link PA-C.) Olesya Link PA-C [Physician [place] [employer]] - 12/24/21 3:00 pm (Please follow up with Olesya Link PA-C on Wednesday12/24/21 at 3:00 pm. Please arrive to the office at 2:45 pm for your appointment. If you are unable to keep this appointment, please call the office to reschedule at [phone].) Terence Little MD [Physician] - 12/31/21 11:20 am (Please follow up with Dr. Little on Wednesday12/31/21 at 11:20 am. Please arrive to the office at 11:05 am for your appointment. If you are unable to keep this appointment, please call the office to reschedule at [phone].) Diet: Regular Addtl Attending Provider Instructions: Ms. Perea, You were admitted for a perforation of your large intestine during a routine colonoscopy. Luckily, this was caught and repaired during the procedure. You did well overnight, have tolerated food, and are ready for discharge. Dr. Little would like you to see him in 2 weeks. He would like you to take a course of antibiotics to prevent any sort of infection. Please call his office with any questions or concerns. Pending Studies at Discharge: No Stand-Alone Forms: Anesthesia/Sedation, Adult, [facility], Smoking Cessation Medications and DC Order Prescriptions: New ciprofloxacin HCl 500 mg tablet 500 mg PO BID Qty: 20 RF: 0 metronidazole 500 mg tablet 500 mg PO Q8H Qty: 30 RF: 0 Continued Invega Sustenna 78 mg/0.5 mL syringe 78 mg IM Q30D RF: 0 albuterol sulfate [Ventolin HFA] 90 mcg/actuation HFA aerosol inhaler 2 puff INHALATION Q4 PRN (Reason: Shortness Of Breath Or Wheezing) Qty: 18 RF: 3 Sutab 1.479-0.188- 0.225 gram tablet See Rx Instructions PO .COMPLEX Qty: 24 RF: 0 Prolia 60 mg/mL syringe 60 mg subcut UD RF: 0 budesonide-formoterol [Symbicort] 80-4.5 mcg/actuation HFA aerosol inhaler 2 puffs INH BID PRN (Reason: SHORT OF BREATH) RF: 0 albuterol sulfate 90 mcg/actuation HFA aerosol inhaler 3 inh inhalation Q6H PRN (Reason: Wheezing) RF: 0 calcium carbonate-vitamin D3 [Calcium 500 With D] 500 mg-10 mcg (400 unit) Tablet 1 tab PO QAM RF: 0 Discharge Orders: Discharge Order (Routine); Ordered 12/16/21 Ordered By: Jose Raul Encarnacion Admission Data Admit Date/Time: 12/15/21 12:24 Attending Provider: Jose Raul Encarnacion Admit Provider: uOmar Camargo Primary Care Provider: Edgardo Miles V. Other Providers: Deven Dodge Other Interventions: Discharge Summary Assessment (RN) Last Done: 12/15/21 11:30 Coding Level of Care Code 91745 OBS Care - Discharge Diagnoses Perforation of sigmoid colon K63.1 HIV disease B20 Hip pain, left M25.552 Bipolar 1 disorder F31.9 Asthma J45.909 Osteoarthritis M19.90
== END 2021-12-16 13:19 | disposition home or self-care (01) ==
LOC: ENDO 09:38 → INTOOBSV 12:24 → SUATTDRO 12:24 → 2E 12:24